=== PATIENT | female | born 1940 | race Caucasian/White ===

== ENCOUNTER 2016-10-16 11:11 | Emergency (ER) | payer MEDICARE ==
[2016-10-16] MEDS ORDERED: CLINDAMYCIN 150 MG CAP PO STA (12:40)
--- NOTE | 2016-10-16 13:32 | ED ---
General Adult HPI - General Chief complaint: Wound/Laceration Stated complaint: infection on arm/burning on tongue Time Seen by Provider: 10/16/16 12:06 Source: patient Mode of arrival: ambulatory - History of Present Illness Initial comments: Patient is a 76-year-old white female presenting to the emergency department with complains of wound to palmar aspect of right forearm. Patient states she got her arm caught in a door about 4 days ago and subsequently suffered a skin tear. Patient states that she has applied topical antibiotics to the wound along with a "black material" that she received from her neighbor that was supposed to draw the pus out. Patient also complains of a sore tongue and sore throat that she's had for approximately 7 days. Patient denies recent illness, chills, fevers, nausea, vomiting, difficulty swallowing, tremors, shortness of breath, chest pain, abdominal pain, diarrhea, constipation, numbness or tingling. Patient denies earache or fullness. Patient states she is able to eat and drink normally. Patient denies antibiotic use and last 30 days. - Related Data Previous Rx's Medication Instructions Recorded Bacitracin Oint 1 applic TOPICAL BID #1 tube 10/16/16 Clindamycin [Cleocin] 300 mg PO Q6H #56 capsule 10/16/16 Allergies Allergy/AdvReac Type Severity Reaction Status Date / Time Penicillins Allergy Rash/Hives Verified 10/16/16 11:19 sulfamethoxazole Allergy Rash/Hives Verified 10/16/16 11:19 [From Bactrim] trimethoprim [From Bactrim] Allergy Rash/Hives Verified 10/16/16 11:19 Review of Systems ROS Statement: Those systems with pertinent positive or pertinent negative responses have been documented in the HPI. ROS Other: All systems not noted in ROS Statement are negative. Past Medical History Past Medical History: COPD, Hyperlipidemia, Hypertension, Osteoarthritis (OA) History of Any Multi-Drug Resistant Organisms: None Reported Past Surgical History: Back Surgery, Orthopedic Surgery Additional Past Surgical History / Comment(s): shoulder Smoking Status: Former smoker Past Alcohol Use History: Occasional Past Drug Use History: None Reported General Exam Limitations: no limitations General appearance: alert, in no apparent distress Head exam: Present: atraumatic, normocephalic Eye exam: Present: normal appearance. Absent: scleral icterus, conjunctival injection, periorbital swelling, periorbital tenderness ENT exam: Present: normal exam, mucous membranes moist, TM's normal bilaterally , normal external ear exam Expanded Mouth exam: Present: normal external inspection, other (Tongue slightly erythematous. No thrush or lesions noted.). Absent: drooling, trismus, muffled voice Teeth exam: Present: normal inspection Throat exam: other (Posterior pharynx slightly erythematous.). negative: tonsillar erythema, tonsillomegaly, tonsillar exudate, R peritonsillar mass, L peritonsillar mass Neck exam: Present: normal inspection, full ROM. Absent: lymphadenopathy, thyromegaly Respiratory exam: Present: normal lung sounds bilaterally. Absent: respiratory distress, wheezes, rales, rhonchi, stridor Cardiovascular Exam: Present: regular rate, normal rhythm, normal heart sounds. Absent: systolic murmur, diastolic murmur, rubs, gallop, clicks GI/Abdominal exam: Present: soft, normal bowel sounds. Absent: distended, tenderness, guarding, rebound, rigid Extremities exam: Present: normal inspection, full ROM, normal capillary refill. Absent: tenderness, pedal edema, joint swelling, calf tenderness Back exam: Present: normal inspection, full ROM Neurological exam: Present: alert, oriented X3, CN II-XII intact, normal gait Psychiatric exam: Present: normal affect, normal mood Skin exam: Present: warm, dry, normal color, other (Skin tear to palmar aspect of right forearm measuring approximately 3 x 2 cm with irregular borders. Minimal purulent drainage noted with minimal cellulitis.). Absent: rash Course Vital Signs 10/16/16 11:15 Temperature 99.0 F Pulse Rate 99 Respiratory 16 Rate Blood Pressure 185/92 O2 Sat by Pulse 98 Oximetry Medical Decision Making - Medical Decision Making Cellulitis with purulent drainage to right forearm secondary to skin tear. Culture obtained. Patient started on clindamycin and provided with wound care instructions. Patient also presented with a sore throat and sore tongue. Strep throat culture obtained. Patient able to swallow and eat without difficulty. No lesions or rash of tongue noted. Patient instructed to follow- up with primary care physician in next 48-72 hours or return to the emergency department if symptoms do not improve or get worse in next 48-72 hours. Patient agrees with treatment plan. Discharge instructions and return parameters reviewed. Disposition Clinical Impression: Cellulitis of forearm, right, Pharyngitis Disposition: HOME SELF-CARE Condition: Good Instructions: Cellulitis (ED), Acute Wound Care (ED) Additional Instructions: Finish antibiotic as prescribed. Clean wound with soap and water twice daily and apply topical antibiotic with nonadherent dressing and dry dressing. Please follow-up with primary care physician on Tuesday for wound check or the emergency department if wound becomes increasingly red or if streaks going up the arm. Patient return with systemic symptoms such as chills, nausea, vomiting , fevers or muscle aches. Follow-up with primary care physician for sore tongue. May use salt water gargles for symptomatic relief. Prescriptions: Bacitracin Oint 1 applic TOPICAL BID #1 tube Clindamycin [Cleocin] 300 mg PO Q6H #56 capsule Time of Disposition: 13:24
[2016-10-16 13:44] VITALS: BP 168/68; PULSE 86; RESP 18; TEMP 98
== END 2016-10-16 13:43 | disposition home or self-care (01) ==
LOC: EC 11:11
DX: L03.113 Cellulitis of right upper limb (principal); S51.811A Laceration without foreign body of right forearm, initial encounter; J02.9 Acute pharyngitis, unspecified; Z87.891 Personal history of nicotine dependence; Z88.0 Allergy status to penicillin; Z88.1 Allergy status to other antibiotic agents; W45.8XXA Other foreign body or object entering through skin, initial encounter; W23.0XXA Caught, crushed, jammed, or pinched between moving objects, initial encounter
CPT/HCPCS: 87070; 87081; 87205; 87430; 99283

== ENCOUNTER 2017-05-10 12:21 | Emergency (ER) | payer MEDICARE ==
[2017-05-10 12:35] VITALS: BP 119/70; PULSE 82; RESP 16; TEMP 98.9
--- NOTE | 2017-05-10 13:08 | ED ---
Lower Extremity Injury HPI - General Chief Complaint: Extremity Injury, Lower Stated Complaint: Fall-Knee Pain Time Seen by Provider: 05/10/17 12:47 Source: patient, RN notes reviewed, old records reviewed Mode of arrival: wheelchair Limitations: no limitations - History of Present Illness Initial Comments: Patient is a 77-year-old female presents emergency Department chief complaint of left knee pain. Patient reports that she was pain He [place] tree yesterday, and fell off of the stool that she was on. Patient states that she has fallen on her left knee. She reports that she was able to bear weight. She denies any foot or ankle pain. Patient states that she has ever had any previous injuries to this knee. She is not seen an rail specialist. Patient states that she put ice on her knee. She states that the pain is worse after she's been sitting for a few hours and ankles to stand up. - Related Data Home Medications Medication Instructions Recorded Confirmed DULoxetine HCL [Cymbalta] 90 mg PO DAILY 10/16/16 10/16/16 amLODIPine BESYLATE/BENAZEPRIL 1 cap PO DAILY 10/16/16 10/16/16 [Lotrel 10-20 mg Capsule] Previous Rx's Medication Instructions Recorded Bacitracin Oint 1 applic TOPICAL BID #1 tube 10/16/16 Clindamycin [Cleocin] 300 mg PO Q6H #56 capsule 10/16/16 Allergies Allergy/AdvReac Type Severity Reaction Status Date / Time Penicillins Allergy Rash/Hives Verified 05/10/17 12:34 sulfamethoxazole Allergy Rash/Hives/ Verified 05/10/17 12:34 [From Bactrim] Blisters trimethoprim [From Bactrim] Allergy Rash/Hives/ Verified 05/10/17 12:34 Blisters Review of Systems ROS Statement: Those systems with pertinent positive or pertinent negative responses have been documented in the HPI. ROS Other: All systems not noted in ROS Statement are negative. Past Medical History Past Medical History: COPD, Hyperlipidemia, Hypertension, Osteoarthritis (OA) Additional Past Medical History / Comment(s): collapsed lung History of Any Multi-Drug Resistant Organisms: None Reported Past Surgical History: Back Surgery, Orthopedic Surgery Additional Past Surgical History / Comment(s): shoulder, lower half of left lung removed Past Psychological History: No Psychological Hx Reported Smoking Status: Former smoker Past Alcohol Use History: Occasional Past Drug Use History: None Reported General Exam - General Exam Comments Initial Comments: This is a 77-year-old female. No acute distress. Limitations: no limitations General appearance: alert, in no apparent distress Head exam: Present: atraumatic, normocephalic, normal inspection Eye exam: Present: normal appearance, PERRL, EOMI. Absent: scleral icterus, conjunctival injection, periorbital swelling ENT exam: Present: normal exam, mucous membranes moist Neck exam: Present: normal inspection. Absent: tenderness, meningismus, lymphadenopathy Respiratory exam: Present: normal lung sounds bilaterally. Absent: respiratory distress, wheezes, rales, rhonchi, stridor Cardiovascular Exam: Present: regular rate, normal rhythm, normal heart sounds. Absent: systolic murmur, diastolic murmur, rubs, gallop, clicks GI/Abdominal exam: Present: soft, normal bowel sounds. Absent: distended, tenderness, guarding, rebound, rigid Extremities exam: Present: normal inspection, full ROM, normal capillary refill. Absent: tenderness, pedal edema, joint swelling, calf tenderness Left Upper Leg exam: Present: normal inspection, full ROM Knee exam: Present: normal inspection, full ROM, tenderness (Tenderness over bilateral meniscus.), swelling (Most swelling.) Lower Leg exam: Present: normal inspection, full ROM Ankle exam: Present: normal inspection, full ROM Foot/Toe exam: Present: normal inspection, full ROM Neurovascular tendon exam: Present: no vascular compromise Back exam: Present: normal inspection Neurological exam: Present: alert, oriented X3, CN II-XII intact Psychiatric exam: Present: normal affect, normal mood Course Vital Signs 05/10/17 12:32 Temperature 98.9 F Pulse Rate 82 Respiratory 16 Rate Blood Pressure 119/70 O2 Sat by Pulse 96 Oximetry Medical Decision Making - Medical Decision Making Chief patient is a 77-year-old female presents emergency Department with left knee pain. Patient has full range of motion. Normal capillary refill and sensation. She does have some tenderness and swelling over the meniscus. No significant laxity in the knee. Patient x-ray was reviewed, noted some any acute abnormalities. There is some disc space calcifications and joint space narrowing due to*arthritis. Patient was informed of these results. Patient only given an Adam wrap to place over the knee. Discussed that she needs to follow-up with orthopedic physician. Discussed taking antibiotics or medicines her pain as well. Discussed icing at 20 minutes on and 20 minutes off. Patient agrees to treatment plan will comply. Return parameters were discussed. - Radiology Data Radiology results: report reviewed X-ray of the left knee shows no acute fracture dislocation. There is mild to moderate tricompartmental joint space loss. Mild spurring patellofemoral compartment. Meniscal calcific Asians are present. Overlying soft tissue appears unremarkable. Disposition Clinical Impression: Contusion of left knee, Injury of meniscus of left knee Disposition: HOME SELF-CARE Condition: Good Instructions: Knee Sprain (ED) Additional Instructions: Patient advised to take Motrin or Tylenol for pain. Patient is to continue to ice the knee. Patient should keep it up and elevated as well. Follow-up with orthopedic physician if symptoms continue to persist. Return to the emergency department if any alarming signs or symptoms occur. Referrals: Guicho Sands MD [Primary Care Provider] - 1-2 days Time of Disposition: 13:18
--- NOTE | 2017-05-10 13:14 | XR ---
EXAMINATION TYPE: XR knee complete LT DATE OF EXAM: 05/10/2017 CLINICAL HISTORY: Left knee pain after fall injury yesterday. TECHNIQUE: Three views of the left knee are obtained. COMPARISON: None. FINDINGS: There is no acute fracture/dislocation evident in left knee. There is mild to moderate tri compartment joint space loss. There is mild spurring patellofemoral compartment. Meniscal calcificat ions are present. The overlying soft tissue appears unremarkable. IMPRESSION: There is no acute fracture or dislocation in the left knee.
--- NOTE | 2017-05-10 13:27 | ED ---
Disposition Clinical Impression: Contusion of left knee, Injury of meniscus of left knee Disposition: HOME SELF-CARE Condition: Good Instructions: Knee Sprain (ED) Additional Instructions: Patient advised to take Motrin or Tylenol for pain. Patient is to continue to ice the knee. Patient should keep it up and elevated as well. Follow-up with orthopedic physician if symptoms continue to persist. Return to the emergency department if any alarming signs or symptoms occur. Referrals: Guicho Sands MD [Primary Care Provider] - 1-2 days Time of Disposition: 13:27
== END 2017-05-10 13:29 | disposition home or self-care (01) ==
LOC: EC 12:21
DX: S83.207A Unspecified tear of unspecified meniscus, current injury, left knee, initial encounter (principal); S80.02XA Contusion of left knee, initial encounter; I10 Essential (primary) hypertension; Z88.0 Allergy status to penicillin; Z79.899 Other long term (current) drug therapy; Z87.891 Personal history of nicotine dependence; W08.XXXA Fall from other furniture, initial encounter
CPT/HCPCS: 99284

== ENCOUNTER 2017-12-12 12:13 | Observation (INO) | payer MEDICARE ==
--- NOTE | 2017-12-12 12:52 | ED ---
General Adult HPI - General Chief complaint: Chest Pain Stated complaint: chest pain Time Seen by Provider: 12/12/17 12:28 Source: patient, RN notes reviewed, old records reviewed Mode of arrival: wheelchair Limitations: no limitations - History of Present Illness Initial comments: 77-year-old female history of COPD, pneumothorax, lung cancer status post resection presenting for chief complaint of central chest pain. Patient has no known history of CAD. States her pain is substernal, worse with deep inspiration. Describes it as a sharp pain which began this morning. She has had a cough over the past several days. She states that over the past one week she has been smoking again she had quit previously. Any radiating pain. Denies abdominal pain. Denies nausea or vomiting. Denies diaphoresis. Denies fever or chills. - Related Data Home Medications Medication Instructions Recorded Confirmed DULoxetine HCL [Cymbalta] 90 mg PO DAILY 10/16/16 12/12/17 amLODIPine BESYLATE/BENAZEPRIL 1 cap PO DAILY 10/16/16 12/12/17 [Lotrel 10-20 mg Capsule] Atorvastatin [Lipitor] 20 mg PO DAILY 12/12/17 12/12/17 Cetirizine HCl/Pseudoephedrine 1 tab PO BID PRN 12/12/17 12/12/17 [Zyrtec-D Tablet] LORazepam [Ativan] 0.5 mg PO DAILY PRN 12/12/17 12/12/17 cycloSPORINE [Restasis] 1 drop BOTH EYES BID 12/12/17 12/12/17 Allergies Allergy/AdvReac Type Severity Reaction Status Date / Time Penicillins Allergy Rash/Hives Verified 12/12/17 14:11 sulfamethoxazole Allergy Rash/Hives/ Verified 12/12/17 14:11 [From Bactrim] Blisters trimethoprim [From Bactrim] Allergy Rash/Hives/ Verified 12/12/17 14:11 Blisters Review of Systems ROS Statement: Those systems with pertinent positive or pertinent negative responses have been documented in the HPI. ROS Other: All systems not noted in ROS Statement are negative. Past Medical History Past Medical History: COPD, Hyperlipidemia, Hypertension, Osteoarthritis (OA) Additional Past Medical History / Comment(s): collapsed lung History of Any Multi-Drug Resistant Organisms: None Reported Past Surgical History: Back Surgery, Orthopedic Surgery Additional Past Surgical History / Comment(s): shoulder, lower half of left lung removed Past Psychological History: No Psychological Hx Reported Smoking Status: Current some day smoker Past Alcohol Use History: Occasional Past Drug Use History: None Reported General Exam Limitations: no limitations General appearance: alert, in no apparent distress Head exam: Present: atraumatic, normocephalic Eye exam: Present: normal appearance, PERRL ENT exam: Present: normal exam Neck exam: Present: normal inspection. Absent: tenderness, meningismus Respiratory exam: Present: wheezes. Absent: respiratory distress Cardiovascular Exam: Present: normal rhythm, tachycardia GI/Abdominal exam: Present: soft. Absent: distended, tenderness, guarding Back exam: Present: normal inspection Neurological exam: Present: alert, oriented X3, CN II-XII intact. Absent: motor sensory deficit Psychiatric exam: Present: normal affect, normal mood Skin exam: Present: warm, dry, intact. Absent: cyanosis, diaphoretic Course Vital Signs 12/12/17 12/12/17 12/12/17 12:24 14:30 14:54 Temperature 98.3 F Pulse Rate 107 H 110 H 112 H Respiratory 24 18 18 Rate Blood Pressure 119/74 137/70 115/89 O2 Sat by Pulse 96 99 98 Oximetry EKG Findings - EKG Comments: EKG Findings:: EKG: Sinus tachycardia, rate of 109, DC interval 116, QRS duration 76, QTC 449, there is no ST segment elevation or depression, upright T waves Medical Decision Making - Medical Decision Making 77-year-old female presenting with substernal chest pain. Pain is worse with deep inspiration. Somewhat atypical. Chest x-ray is negative for focal pneumonia or pneumothorax. D-dimer is elevated and therefore CT angiography is obtained, this is negative for PE. Magnesium 1.3 this is replaced. Initial troponin is negative. Patient's will be admitted for serial cardiac enzymes and cardiology consultation. Case discussed with Dr. Eagle, he will accept admission. - Lab Data Result diagrams: 12/12/17 12:50 12/12/17 12:50 Lab Results 12/12/17 12/12/17 12/12/17 Range/Units 12:50 12:50 12:50 WBC 10.0 (3.8-10.6) k/uL RBC 4.02 (3.80-5.40) m/uL Hgb 14.0 (11.4-16.0) gm/dL Hct 41.9 (34.0-46.0) % MCV 104.3 H (80.0-100.0) fL MCH 34.8 (25.0-35.0) pg MCHC 33.4 (31.0-37.0) g/dL RDW 15.2 (11.5-15.5) % Plt Count 233 (150-450) k/uL Neutrophils % 84 % Lymphocytes % 8 % Monocytes % 5 % Eosinophils % 1 % Basophils % 0 % Neutrophils # 8.4 H (1.3-7.7) k/uL Lymphocytes # 0.8 L (1.0-4.8) k/uL Monocytes # 0.5 (0-1.0) k/uL Eosinophils # 0.1 (0-0.7) k/uL Basophils # 0.0 (0-0.2) k/uL Macrocytosis Slight PT (9.0-12.0) sec INR (<1.2) APTT (22.0-30.0) sec D-Dimer (<0.60) mg/L FEU Sodium 138 (137-145) mmol/L Potassium 4.7 (3.5-5.1) mmol/L Chloride 102 (98-107) mmol/L Carbon Dioxide 21 L (22-30) mmol/L Anion Gap 15 mmol/L BUN 16 (7-17) mg/dL Creatinine 0.74 (0.52-1.04) mg/dL Est GFR (CKD-EPI)AfAm >90 (>60 ml/min/1.73 sqM) Est GFR (CKD-EPI)NonAf 80 (>60 ml/min/1.73 sqM) Glucose 99 (74-99) mg/dL Calcium 10.1 (8.4-10.2) mg/dL Magnesium 1.3 L (1.6-2.3) mg/dL Total Bilirubin 1.0 (0.2-1.3) mg/dL AST 64 H (14-36) U/L ALT 52 (9-52) U/L Alkaline Phosphatase 122 (38-126) U/L Total Creatine Kinase 91 (30-135) U/L CK-MB (CK-2) 1.3 (0.0-2.4) ng/mL CK-MB (CK-2) Rel Index 1.4 Troponin I <0.012 (0.000-0.034) ng/mL NT-Pro-B Natriuret Pep pg/mL Total Protein 7.3 (6.3-8.2) g/dL Albumin 4.5 (3.5-5.0) g/dL 12/12/17 12/12/17 Range/Units 12:50 12:50 WBC (3.8-10.6) k/uL RBC (3.80-5.40) m/uL Hgb (11.4-16.0) gm/dL Hct (34.0-46.0) % MCV (80.0-100.0) fL MCH (25.0-35.0) pg MCHC (31.0-37.0) g/dL RDW (11.5-15.5) % Plt Count (150-450) k/uL Neutrophils % % Lymphocytes % % Monocytes % % Eosinophils % % Basophils % % Neutrophils # (1.3-7.7) k/uL Lymphocytes # (1.0-4.8) k/uL Monocytes # (0-1.0) k/uL Eosinophils # (0-0.7) k/uL Basophils # (0-0.2) k/uL Macrocytosis PT 9.6 (9.0-12.0) sec INR 1.0 (<1.2) APTT 23.5 (22.0-30.0) sec D-Dimer 1.30 H (<0.60) mg/L FEU Sodium (137-145) mmol/L Potassium (3.5-5.1) mmol/L Chloride (98-107) mmol/L Carbon Dioxide (22-30) mmol/L Anion Gap mmol/L BUN (7-17) mg/dL Creatinine (0.52-1.04) mg/dL Est GFR (CKD-EPI)AfAm (>60 ml/min/1.73 sqM) Est GFR (CKD-EPI)NonAf (>60 ml/min/1.73 sqM) Glucose (74-99) mg/dL Calcium (8.4-10.2) mg/dL Magnesium (1.6-2.3) mg/dL Total Bilirubin (0.2-1.3) mg/dL AST (14-36) U/L ALT (9-52) U/L Alkaline Phosphatase (38-126) U/L Total Creatine Kinase (30-135) U/L CK-MB (CK-2) (0.0-2.4) ng/mL CK-MB (CK-2) Rel Index Troponin I (0.000-0.034) ng/mL NT-Pro-B Natriuret Pep 96 pg/mL Total Protein (6.3-8.2) g/dL Albumin (3.5-5.0) g/dL Disposition Clinical Impression: Chest pain Disposition: ADMITTED IP TO THIS [facility] Condition: Stable Is patient prescribed a controlled substance at d/c from ED?: No Referrals: Guicho Sands MD [Primary Care Provider] - 1-2 days Decision to Admit Reason: Admit from EC Decision Date: 12/12/17 Decision Time: 15:31
--- NOTE | 2017-12-12 13:27 | XR ---
EXAMINATION TYPE: XR chest 2V DATE OF EXAM: 12/12/2017 COMPARISON: NONE HISTORY: Chest pain as morning. TECHNIQUE: Frontal and lateral views of the chest are obtained. FINDINGS: There is some chronic parenchymal change without suspicious focal air space opacity, pleur al effusion, or pneumothorax seen. The cardiac silhouette size is upper limits of normal with athero sclerotic thoracic aorta. There is partial visualization of surgical change in the lumbar spine. Ther e is fairly moderate multilevel spurring and disc space narrowing in the mid to lower thoracic spine. IMPRESSION: Chronic changes without acute pulmonary process.
[2017-12-12 13:29] LABS: ALT 52 U/L (9-52); AST 64 U/L (14-36); Albumin 4.5 g/dL (3.5-5.0); Alkaline Phosphatase 122 U/L (38-126); Anion Gap 15 mmol/L; Basophils % (A) 0 %; Blood Urea Nitrogen 16 mg/dL (7-17); Calcium 10.1 mg/dL (8.4-10.2); Carbon Dioxide 21 mmol/L (22-30); Chloride 102 mmol/L (98-107); Eosinophils # (A) 0.1 k/uL (0-0.7); Eosinophils % (A) 1 %; Glucose 99 mg/dL (74-99); HCT 41.9 % (34.0-46.0); Lymphocytes # (A) 0.8 k/uL (1.0-4.8); Lymphocytes % (A) 8 %; MCH 34.8 pg (25.0-35.0); MCHC 33.4 g/dL (31.0-37.0); MCV 104.3 fL (80.0-100.0); Macrocytosis Slight; Magnesium 1.3 mg/dL (1.6-2.3); Mean Platelet Volume 6.8; Monocytes # (A) 0.5 k/uL (0-1.0); Monocytes % (A) 5 %; Neutrophils # (A) 8.4 k/uL (1.3-7.7); Neutrophils % (A) 84 %; Platelet Count 233 k/uL (150-450); Potassium 4.7 mmol/L (3.5-5.1); RBC 4.02 m/uL (3.80-5.40); RDW 15.2 % (11.5-15.5); Sodium 138 mmol/L (137-145); Total Protein 7.3 g/dL (6.3-8.2)
[2017-12-12 13:40] LABS: Partial Thromboplastin Time 23.5 sec (22.0-30.0); Prothrombin Time 9.6 sec (9.0-12.0)
[2017-12-12 13:43] LABS: Creatine Kinase 91 U/L (30-135)
[2017-12-12 13:54] LABS: Creatine Kinase MB 1.3 ng/mL (0.0-2.4); Troponin I <0.012 ng/mL (0.000-0.034)
[2017-12-12 14:02] LABS: D-Dimer 1.3 mg/L FEU (<0.60)
--- NOTE | 2017-12-12 14:50 | CT ---
EXAMINATION TYPE: CT angio chest DATE OF EXAM: 12/12/2017 COMPARISON: Same day chest x-ray HISTORY: Shortness of breath CT DLP: 139.3 mGycm. Automated Exposure Control for Dose Reduction was Utilized. CONTRAST: CTA scan of the thorax is performed with IV Contrast, patient injected with 70 mL of Isovue 370, pulm onary embolism protocol. MIP Images are created on CT scanner and reviewed. FINDINGS: LUNGS: Elevated left hemidiaphragm is present. There is posterior and lateral left basilar linear sca rring and/or atelectasis. There is background mild to moderate underlying emphysematous change with m ild biapical pleural/parenchymal scarring. There is no suspicious focal consolidation or groundglass opacity. No pleural effusion or pneumothorax is present bilaterally MEDIASTINUM: There is satisfactory enhancement of the pulmonary artery and its branches, there is no CT evidence for pulmonary embolism. There are no greater than 1 cm hilar or mediastinal lymph nodes. No significant pericardial effusion is seen. Heart size is upper limits of normal. There is mild t o moderate plaque in the visualized aorta. OTHER: There is partial visualization of surgical change in the lumbar spine. IMPRESSION: 1. No CT evidence for acute pulmonary embolism. 2. Chronic changes without acute pulmonary process.
[2017-12-12] MEDS ORDERED: SODIUM CHLORIDE 0.9% 1,000 ML IV ONE (14:57)
--- NOTE | 2017-12-12 15:03 | P.HPIM ---
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 Patient denies any change in urine or bowel habits, no fever, no dizziness, no headache or weakness Patient states she is quit smoking a while ago and she is on Chantix however the last week she was started again about 3-4 cigarettes per day Chest x-ray shows chronic changes without acute pulmonary process Review of Systems CONSTITUTIONAL: No fever, no malaise, no fatigue. HEENT: No recent visual problems or hearing problems. Denied any sore throat. CARDIOVASCULAR: No orthopnea, PND, no palpitations, no syncope. PULMONARY: No shortness of breath, no cough, no hemoptysis. GASTROINTESTINAL: No diarrhea, no nausea, no vomiting, no abdominal pain. Normoactive bowel sounds. NEUROLOGICAL: No headaches, no weakness, no numbness. HEMATOLOGICAL: Denies any bleeding or petechiae. GENITOURINARY: Denies any burning micturition, frequency, or urgency. MUSCULOSKELETAL/RHEUMATOLOGICAL: Denies any joint pain, swelling, or any muscle pain. ENDOCRINE: Denies any polyuria or polydipsia. Past Medical History Past Medical History: COPD, Hyperlipidemia, Hypertension, Osteoarthritis (OA) Additional Past Medical History / Comment(s): collapsed lung History of Any Multi-Drug Resistant Organisms: None Reported Past Surgical History: Back Surgery, Orthopedic Surgery Additional Past Surgical History / Comment(s): shoulder, lower half of left lung removed Past Psychological History: No Psychological Hx Reported Smoking Status: Current some day smoker Past Alcohol Use History: Occasional Past Drug Use History: None Reported Medications and Allergies Home Medications Medication Instructions Recorded Confirmed Type DULoxetine HCL [Cymbalta] 90 mg PO DAILY 10/16/16 12/12/17 History amLODIPine BESYLATE/BENAZEPRIL 1 cap PO DAILY 10/16/16 12/12/17 History [Lotrel 10-20 mg Capsule] Atorvastatin [Lipitor] 20 mg PO DAILY 12/12/17 12/12/17 History Cetirizine HCl/Pseudoephedrine 1 tab PO BID PRN 12/12/17 12/12/17 History [Zyrtec-D Tablet] LORazepam [Ativan] 0.5 mg PO DAILY PRN 12/12/17 12/12/17 History cycloSPORINE [Restasis] 1 drop BOTH EYES BID 12/12/17 12/12/17 History Allergies Allergy/AdvReac Type Severity Reaction Status Date / Time Penicillins Allergy Rash/Hives Verified 12/12/17 14:11 sulfamethoxazole Allergy Rash/Hives/ Verified 12/12/17 14:11 [From Bactrim] Blisters trimethoprim [From Bactrim] Allergy Rash/Hives/ Verified 12/12/17 14:11 Blisters Physical Exam Vitals: Vital Signs Temp Pulse Resp BP Pulse Ox 12/12/17 12:24 98.3 F 107 H 24 119/74 96 Intake and Output 12/11/17 12/12/17 12/12/17 22:59 06:59 14:59 Other: Weight 52.163 kg GENERAL: The patient is alert and oriented x3, not in any acute distress. Well developed, well nourished. HEENT: Pupils are round and equally reacting to light. EOMI. No scleral icterus. No conjunctival pallor. Normocephalic, atraumatic. No pharyngeal erythema. No thyromegaly. CARDIOVASCULAR: S1 and S2 present. No murmurs, rubs, or gallops. PULMONARY: Chest is clear to auscultation, no wheezing or crackles. ABDOMEN: Soft, nontender, nondistended, normoactive bowel sounds. No palpable organomegaly. MUSCULOSKELETAL: No joint swelling or deformity. EXTREMITIES: No cyanosis, clubbing, or pedal edema. NEUROLOGICAL: Gross neurological examination did not reveal any focal deficits. SKIN: No rashes. Results CBC & Chem 7: 12/12/17 12:50 12/12/17 12:50 Labs: Abnormal Lab Results - Last 24 Hours (Table) 12/12/17 12/12/17 12/12/17 Range/Units 12:50 12:50 12:50 MCV 104.3 H (80.0-100.0) fL Neutrophils # 8.4 H (1.3-7.7) k/uL Lymphocytes # 0.8 L (1.0-4.8) k/uL D-Dimer 1.30 H (<0.60) mg/L FEU Carbon Dioxide 21 L (22-30) mmol/L Magnesium 1.3 L (1.6-2.3) mg/dL AST 64 H (14-36) U/L Assessment and Plan Plan: -Chest pain syndrome, continue with serial troponins and we'll order echo and cardiology consult. Patient undergoing CTPA by ED team -History of COPD, continue with the current treatment -Hypertension continue with same treatment -Current smoker, patient is counseled for risks including but not limited to cancer and strokes of the heart and the brain and/or are explained to the patient and she verbalized understanding, she doesn't want nicotine patch and she doesn't want to quit currently -Dehydration, continue with IV fluids DVT prophylaxis heparin GI prophylaxis Pepcid
[2017-12-12] MEDS ORDERED: SODIUM CHLORIDE 0.9% 500 ML IV ONE (15:21)
[2017-12-12] MEDS ORDERED: MAGNESIUM SULFATE-D5W PMX 1 GM in DEXTROSE/WATER 1 100ML.BAG IVPB ONE (15:23)
[2017-12-12] MEDS ORDERED: NALOXONE 0.4 MG/ML 1 ML VIAL IV PRN (15:28)
[2017-12-12] MEDS ORDERED: ASPIRIN 325 MG TAB PO STA (15:28)
[2017-12-12] MEDS ORDERED: ACETAMINOPHEN TAB 325 MG TAB PO PRN (15:28)
[2017-12-12] MEDS ORDERED: IBUPROFEN 400 MG TAB PO PRN (15:28)
[2017-12-12] MEDS ORDERED: Magnesium Replacement Protocol 1 EACH MISC MISCELLANE PRN (18:25)
[2017-12-12 19:28] LABS: Creatine Kinase 82 U/L (30-135)
[2017-12-12 19:43] LABS: Creatine Kinase MB 1.2 ng/mL (0.0-2.4); Troponin I <0.012 ng/mL (0.000-0.034)
[2017-12-12] MEDS: FAMOTIDINE 20 MG/2 ML VIAL IV SCH (22:51)
[2017-12-12] MEDS: HEPARIN SODIUM,PORCINE 5,000 UNIT/ML 1 ML VIAL SQ SCH (22:51)
[2017-12-12] MEDS: cycloSPORINE 0.05% OPHTH 0.4 ML DROPERETTE BOTH EYES SCH (22:51)
[2017-12-12 23:42] VITALS: RESP 16
[2017-12-13 01:33] LABS: Creatine Kinase 81 U/L (30-135)
[2017-12-13 01:47] LABS: Creatine Kinase MB 1.1 ng/mL (0.0-2.4); Troponin I <0.012 ng/mL (0.000-0.034)
[2017-12-13 07:01] LABS: Basophils % (A) 1 %; Eosinophils # (A) 0.1 k/uL (0-0.7); Eosinophils % (A) 3 %; HCT 38.2 % (34.0-46.0); HGB 12.5 gm/dL (11.4-16.0); Lymphocytes # (A) 0.7 k/uL (1.0-4.8); Lymphocytes % (A) 19 %; MCH 33.4 pg (25.0-35.0); MCHC 32.6 g/dL (31.0-37.0); MCV 102.6 fL (80.0-100.0); Macrocytosis Slight; Mean Platelet Volume 7.2; Monocytes # (A) 0.4 k/uL (0-1.0); Monocytes % (A) 11 %; Neutrophils # (A) 2.3 k/uL (1.3-7.7); Neutrophils % (A) 64 %; Platelet Count 195 k/uL (150-450); RBC 3.72 m/uL (3.80-5.40); RDW 13.4 % (11.5-15.5); WBC 3.6 k/uL (3.8-10.6)
[2017-12-13 07:10] LABS: Calcium 9.5 mg/dL (8.4-10.2); Magnesium 1.8 mg/dL (1.6-2.3); Potassium 4.5 mmol/L (3.5-5.1)
--- NOTE | 2017-12-13 09:46 | P.CRDCN ---
History of Present Illness History of present illness: Mrs. Waters is a pleasant 77-year-old female past medical history significant for hypertension, dyslipidemia, COPD, lung cancer status post left lung resection March 2017 and current smoker. She states yesterday she woke up and she had pain in her chest described as a sharp in the midsternal region that radiated to the upper back in between her shoulder blades. No radiation to the arm, neck or jaw. She denies associated shortness of breath, dizziness, nausea, vomiting, diaphoresis or palpitations. She has been coughing recently with no sputum production. She states the pain in her chest is made worse by taking a deep breath or coughing. No specific alleviating factors. She recently underwent a stress test 2 weeks ago. EKG reveals sinus tachycardia with no acute ST or T-wave abnormalities. Rate 119. Chest xray negative for an acute cardiopulmonary process. CT angios of the chest is negative for pulmonary embolism with mild to moderate plaque in the aorta. Laboratory data reviewed, hemoglobin 12.5, platelets 195, d-dimer 1.3, sodium 139, potassium 4.5, magnesium 1.8, creatinine 0.76, cardiac enzymes negative 3 , proBNP 96. Magnesium on admission was low, 1.3 and has been replaced. Current cardiac medications include atorvastatin 20 mg daily and amlodipine/ benazepril 10/20 mg daily. She also takes Restasis, Ativan, Zyrtec and Cymbalta. Review of Systems At the time of my exam: CONSTITUTIONAL: Denies fever. Denies chills. EYES: Denies blurred vision. Denies vision changes. Denies eye pain. EARS, NOSE, MOUTH & THROAT: Denies headache. Denies sore throat. Denies ear pain. CARDIOVASCULAR: Denies chest pain. Denies shortness of breath. Denies orthopnea. Denies PND. Denies palpitations. RESPIRATORY: Denies cough. GASTROINTESTINAL: Denies abdominal pain. Denies diarrhea. Denies constipation. Denies nausea. Denies vomiting. MUSCULOSKELETAL: Denies myalgias. INTEGUMENTARY: Denies pruitis. Denies rash. NEUROLOGIC: Denies numbness. Denies tingling. Denies weakness. PSYCHIATRIC: Denies anxiety. Denies depression. ENDOCRINE: Denies fatigue. Denies weight change. Denies polydipsia. Denies polyurina. GENITOURINARY: Denies burning, hematuria or urgency with micturation. HEMATOLOGIC: Denies history of anemia. Denies bleeding. Past Medical History Past Medical History: COPD, Hyperlipidemia, Hypertension, Osteoarthritis (OA) Additional Past Medical History / Comment(s): lung bx and post collapsed lung required a c/t, migraines in past, osteoporosis, sinus problems, benign colon polyps. lung cancer 2017(sx only), "occ my heart beats fast" History of Any Multi-Drug Resistant Organisms: None Reported Past Surgical History: Back Surgery, Orthopedic Surgery, Tubal Ligation Additional Past Surgical History / Comment(s): lt shoulder-rotator cuff, lung bx and lower half of left lung removed d/t cancer,philip cataracts, philip bunionectomies and philip 2nd toes straightend, colonoscopy-benign polyps removed, Past Anesthesia/Blood Transfusion Reactions: No Reported Reaction Smoking Status: Former smoker - Past Family History Mother Family Medical History: Congestive Heart Failure (CHF) Additional Family Medical History / Comment(s): brain anerysm Father Family Medical History: Cancer Additional Family Medical History / Comment(s): lymphoma-non hodgkins Medications and Allergies Home Medications Medication Instructions Recorded Confirmed Type DULoxetine HCL [Cymbalta] 90 mg PO DAILY 10/16/16 12/12/17 History amLODIPine BESYLATE/BENAZEPRIL 1 cap PO DAILY 10/16/16 12/12/17 History [Lotrel 10-20 mg Capsule] Atorvastatin [Lipitor] 20 mg PO DAILY 12/12/17 12/12/17 History Cetirizine HCl/Pseudoephedrine 1 tab PO BID PRN 12/12/17 12/12/17 History [Zyrtec-D Tablet] LORazepam [Ativan] 0.5 mg PO DAILY PRN 12/12/17 12/12/17 History cycloSPORINE [Restasis] 1 drop BOTH EYES BID 12/12/17 12/12/17 History Allergies Allergy/AdvReac Type Severity Reaction Status Date / Time Penicillins Allergy Rash/Hives Verified 12/12/17 14:11 sulfamethoxazole Allergy Rash/Hives/ Verified 12/12/17 14:11 [From Bactrim] Blisters trimethoprim [From Bactrim] Allergy Rash/Hives/ Verified 12/12/17 14:11 Blisters Physical Exam Vitals: Vital Signs Temp Pulse Pulse Resp BP BP Pulse Ox 12/13/17 07:35 97.8 F 89 16 97/62 99 12/13/17 04:00 98.0 F 83 16 107/63 98 12/13/17 03:05 16 12/13/17 00:00 16 12/12/17 23:41 98.8 F 99 16 139/76 99 12/12/17 20:00 18 12/12/17 19:58 98.1 F 94 18 109/65 95 12/12/17 17:50 109 H 12/12/17 16:40 99.1 F 109 H 18 127/67 99 12/12/17 15:49 98.3 F 112 H 18 155/83 97 12/12/17 14:54 112 H 18 115/89 98 12/12/17 14:30 110 H 18 137/70 99 12/12/17 12:24 98.3 F 107 H 24 119/74 96 Intake and Output 12/12/17 12/13/17 12/13/17 22:59 06:59 14:59 Intake Total 660 Balance 660 Intake: Oral 660 Other: Voiding Method Toilet Toilet # Voids 1 Weight 53.4 kg Blood pressure 97/62 heart rate 89 afebrile maintaining oxygen saturation on nasal cannula GENERAL: This is a 77-year-old female in no apparent distress at the time of my examination. HEENT: Head is atraumatic, normocephalic. Pupils are equal, round. Sclerae anicteric. Conjunctivae are clear. Mucous membranes of the mouth are moist. Neck is supple. There is no jugular venous distention. No carotid bruit is heard. LUNGS: Faint expiratory wheeze. No rales or rhonchi. No chest wall tenderness is noted on palpation or with deep breathing. HEART: Regular rate and rhythm without murmurs, rubs or gallops. S1 and S2 heard. ABDOMEN: Soft, nontender. Bowel sounds are heard. No organomegaly noted. EXTREMITIES: No evidence of peripheral edema and no calf tenderness noted. VASCULAR: Radial and dorsalis pedis pulses palpated, no evidence of clubbing. NEUROLOGIC: Patient is awake, alert and oriented x3. Results 12/13/17 06:14 12/13/17 06:14 Cardiac Enzymes 12/12/17 12/12/1712/12/18 Range/Units 12:50 12:50 18:32 AST 64 H (14-36) U/L CK-MB (CK-2) 1.3 1.2 (0.0-2.4) ng/mL Troponin I <0.012 <0.012 (0.000-0.034) ng/mL 12/13/17 Range/Units 00:34 AST (14-36) U/L CK-MB (CK-2) 1.1 (0.0-2.4) ng/mL Troponin I <0.012 (0.000-0.034) ng/mL Coagulation 12/12/17 Range/Units 12:50 PT 9.6 (9.0-12.0) sec APTT 23.5 (22.0-30.0) sec CBC 12/12/17 12/13/17 Range/Units 12:50 06:14 WBC 10.0 3.6 L (3.8-10.6) k/uL RBC 4.02 3.72 L (3.80-5.40) m/uL Hgb 14.0 12.5 (11.4-16.0) gm/dL Hct 41.9 38.2 (34.0-46.0) % Plt Count 233 195 (150-450) k/uL Comprehensive Metabolic Panel 12/12/17 12/13/17 Range/Units 12:50 06:14 Sodium 138 139 (137-145) mmol/L Potassium 4.7 4.5 (3.5-5.1) mmol/L Chloride 102 105 (98-107) mmol/L Carbon Dioxide 21 L 24 (22-30) mmol/L BUN 16 15 (7-17) mg/dL Creatinine 0.74 0.76 (0.52-1.04) mg/dL Glucose 99 87 (74-99) mg/dL Calcium 10.1 9.5 (8.4-10.2) mg/dL AST 64 H (14-36) U/L ALT 52 (9-52) U/L Alkaline Phosphatase 122 (38-126) U/L Total Protein 7.3 (6.3-8.2) g/dL Albumin 4.5 (3.5-5.0) g/dL Current Medications Generic Name Dose Route Start Last Admin Trade Name Freq PRN Reason Stop Dose Admin Acetaminophen 650 mg 12/12/17 15:28 Tylenol Tab PO Q6HR PRN Mild Pain or Fever > 100.5 Cyclosporine 1 drops 12/12/17 21:00 12/12/17 22:51 Restasis 0.05% Ophth Soln BOTH EYES 1 drops BID AY Administration Famotidine 20 mg 12/12/17 21:00 12/12/17 22:51 Pepcid IV 20 mg Q12HR YA Administration Heparin Sodium (Porcine) 5,000 unit 12/12/17 21:00 12/12/17 22:51 Heparin SQ 5,000 unit Q12HR YA Administration Ibuprofen 400 mg 12/12/17 15:28 12/12/17 22:53 Motrin PO 400 mg Q6HR PRN Administration Mild Pain or Fever > 100.5 Miscellaneous Information 1 each 12/12/17 18:25 Magnesium Per Protocol MISCELLANE DAILY PRN Per Protocol Protocol Naloxone HCl 0.2 mg 12/12/17 15:28 Narcan IV Q2M PRN Opioid Reversal Intake and Output 12/12/17 12/13/17 12/13/17 22:59 06:59 14:59 Intake Total 660 Balance 660 Intake: Oral 660 Other: Voiding Method Toilet Toilet # Voids 1 Weight 53.4 kg 12/13/17 06:14 12/13/17 06:14 Assessment and Plan Assessment: ASSESSMENT 1. Pleuritic chest pain. An acute coronary event has from rule out no EKG evidence of ischemia and normal cardiac enzymes. 2. Dyslipidemia 3. Hypertension 4. COPD 5. History of lung cancer status post left lung resection, March 2017 6. Chronic tobacco abuse PLAN Obtain 2-D echocardiogram and Doppler study to assess cardiac structure and function. Obtain records of recent stress test performed at [facility] in [place]. If recent stress test is normal she is stable from a cardiac perspective. Follow-up with her primary cost controller upon discharge. Nurse Practitioner note has been reviewed, I agree with a documented findings and plan of care. Patient was seen and examined.
--- NOTE | 2017-12-13 11:08 | P.PN ---
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 Patient denies any change in urine or bowel habits, no fever, no dizziness, no headache or weakness Patient states she is quit smoking a while ago and she is on Chantix however the last week she was started again about 3-4 cigarettes per day Chest x-ray shows chronic changes without acute pulmonary process 12/13/2017 Patient is resting in bed with no complaints, her chest pain came down to 0/10, it is completely resolved. No other new complaints. Pcts evaluated the patient and they recommended echo and the get the results of stress test. We checked her blood pressure on the right side 134/76 heart rate 96 and on the left side 138/72 and heart rate 94 Objective - Vital Signs Vital signs: Vital Signs Temp 97.8 F 12/13/17 07:35 Pulse 89 12/13/17 07:35 Resp 16 12/13/17 07:35 BP 97/62 12/13/17 07:35 Pulse Ox 99 12/13/17 07:35 Intake & Output 12/12/17 12/13/17 12/13/17 18:59 06:59 18:59 Intake Total 660 Balance 660 Weight 53.4 kg Intake: Oral 660 Other: Voiding Method Toilet Toilet # Voids 1 - Exam GENERAL: The patient is alert and oriented x3, not in any acute distress. Well developed, well nourished. HEENT: Pupils are round and equally reacting to light. EOMI. No scleral icterus. No conjunctival pallor. Normocephalic, atraumatic. No pharyngeal erythema. No thyromegaly. CARDIOVASCULAR: S1 and S2 present. No murmurs, rubs, or gallops. PULMONARY: Chest is clear to auscultation, no wheezing or crackles. ABDOMEN: Soft, nontender, nondistended, normoactive bowel sounds. No palpable organomegaly. MUSCULOSKELETAL: No joint swelling or deformity. EXTREMITIES: No cyanosis, clubbing, or pedal edema. NEUROLOGICAL: Gross neurological examination did not reveal any focal deficits. SKIN: No rashes. - Labs CBC & Chem 7: 12/13/17 06:14 12/13/17 06:14 Labs: Abnormal Lab Results - Last 24 Hours (Table) 12/12/17 12/12/17 12/12/17 Range/Units 12:50 12:50 12:50 WBC (3.8-10.6) k/uL RBC (3.80-5.40) m/uL MCV 104.3 H (80.0-100.0) fL Neutrophils # 8.4 H (1.3-7.7) k/uL Lymphocytes # 0.8 L (1.0-4.8) k/uL D-Dimer 1.30 H (<0.60) mg/L FEU Carbon Dioxide 21 L (22-30) mmol/L Magnesium 1.3 L (1.6-2.3) mg/dL AST 64 H (14-36) U/L 12/13/17 Range/Units 06:14 WBC 3.6 L (3.8-10.6) k/uL RBC 3.72 L (3.80-5.40) m/uL MCV 102.6 H (80.0-100.0) fL Neutrophils # (1.3-7.7) k/uL Lymphocytes # 0.7 L (1.0-4.8) k/uL D-Dimer (<0.60) mg/L FEU Carbon Dioxide (22-30) mmol/L Magnesium (1.6-2.3) mg/dL AST (14-36) U/L Assessment and Plan Plan: -Chest pain syndrome,cardiology consult: Recommended echo and results of recent stress test which are pending. Patient undergoing CTPA by ED team: Negative for PE -History of COPD, continue with the current treatment -Hypertension continue with same treatment -Current smoker, patient is counseled for risks including but not limited to cancer and strokes of the heart and the brain and/or are explained to the patient and she verbalized understanding, she doesn't want nicotine patch and she doesn't want to quit currently -Dehydration, resolving. continue with oral hydration DVT prophylaxis heparin GI prophylaxis Pepcid
[2017-12-13 11:18] VITALS: BP 138/72; PULSE 84; TEMP 98.5
[2017-12-13] MEDS ORDERED: LORazepam 0.5 MG TAB PO PRN (11:36)
[2017-12-13] MEDS ORDERED: LORATADINE-PSEUDOEPH 5-120 MG 1 EACH TAB.ER.12H PO PRN (11:36)
[2017-12-13] MEDS ORDERED: hydrALAZINE HCL 25 MG TAB PO PRN (11:37)
[2017-12-13] MEDS ORDERED: DULoxetine HCL 30 MG CAPSULE.DR PO SCH (11:45)
[2017-12-13] MEDS: cycloSPORINE 0.05% OPHTH 0.4 ML DROPERETTE BOTH EYES SCH (12:45)
[2017-12-13] MEDS: HEPARIN SODIUM,PORCINE 5,000 UNIT/ML 1 ML VIAL SQ SCH (12:48)
[2017-12-13] MEDS: FAMOTIDINE 20 MG/2 ML VIAL IV SCH ×2 (12:48→17:10)
--- NOTE | 2017-12-13 13:16 | ECHOF ---
Referral Reason:cp MEASUREMENTS -------- HEIGHT: 154.9 cm WEIGHT: 52.2 kg BP: 115/89 RVIDd: 3.0 cm (< 3.3) IVSd: 1.2 cm (0.6 - 1.1) LVIDd: 4.7 cm (3.9 - 5.3) LVPWd: 1.3 cm (0.6 - 1.1) IVSs: 1.5 cm LVIDs: 2.8 cm LVPWs: 1.3 cm LAESV Index (A-L): 25.23 ml/m Ao Diam: 3.0 cm (2.0 - 3.7) AV Cusp: 1.6 cm (1.5 - 2.6) LA Diam: 2.8 cm (2.7 - 3.8) EPSS: 0.9 cm MV E Cristofer: 0.70 m/s MV DecT: 190 ms MV A Cristofer: 1.19 m/s MV E/A Ratio: 0.59 RAP: 5.00 mmHg RVSP: 29.64 mmHg MV EF SLOPE: 129.22 mm/s (70 - 150) MV EXCURSION: 1.50 cm (> 18.000) FINDINGS -------- Sinus rhythm. This was a technically adequate study. The left ventricular size is normal. There is mild concentric left ventricular hypertrophy. Overa ll left ventricular systolic function is normal with, an EF between 55 - 60 %. The right ventricle is mildly enlarged. Normal LA size by volume 22+/-6 ml/m2. RA appears enlarged. Aortic valve is trileaflet and is mildly thickened. There is no evidence of aortic regurgitation. There is no evidence of aortic stenosis. The mitral valve leaflets are mildly thickened. There is trace mitral regurgitation. Trace tricuspid regurgitation present. Right ventricular systolic pressure is normal at < 35 mmHg. There is no evidence of pulmonary hypertension. The pulmonic valve was not well visualized. The aortic root size is normal. Normal inferior vena cava with normal inspiratory collapse consistent with estimated right atrial pre ssure of 5 mmHg. There is no pericardial effusion. Small Pleural Effusion. CONCLUSIONS -------- 1. Sinus rhythm. 2. This was a technically adequate study. 3. The left ventricular size is normal. 4. There is mild concentric left ventricular hypertrophy. 5. Overall left ventricular systolic function is normal with, an EF between 55 - 60 %. 6. The right ventricle is mildly enlarged. 7. Normal LA size by volume 22+/-6 ml/m2. 8. RA appears enlarged. 9. Aortic valve is trileaflet and is mildly thickened. 10. The mitral valve leaflets are mildly thickened. 11. There is trace mitral regurgitation. 12. Trace tricuspid regurgitation present. 13. Right ventricular systolic pressure is normal at < 35 mmHg. 14. There is no evidence of pulmonary hypertension. 15. The pulmonic valve was not well visualized. 16. The aortic root size is normal. 17. There is no pericardial effusion. 18. Small Pleural Effusion. INSULATION ENGINEMAN: Sriram Booker RDCS
--- NOTE | 2017-12-13 15:04 | P.DS ---
Providers Date of admission: 12/12/17 15:28 Attending physician: Nelson Eagle MD Consults: 12/12/17 15:29 Consult Physician Routine Consulting Provider: Alexy Paige Consult Reason/Comments: Chest pain Do you want consulting provider notified?: Yes Primary care physician: Guicho Guillen [facility] Course: This is a pleasant 77 years old female with past medical history of COPD, hypertension, hyperlipidemia, osteoarthritis, lower half of left lung removal surgery, current smoker who presents because of chest pain, central, radiating to the between shoulder blades, heaviness in character, 6/10 in severity, no relieving or precipitating factors, patient has chronic dyspnea with no recent worsening, associated with a chronic cough and 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 Patient denies any change in urine or bowel habits, no fever, no dizziness, no headache or weakness Patient states she is quit smoking a while ago and she is on Chantix however the last week she was started again about 3-4 cigarettes per day Chest x-ray shows chronic changes without acute pulmonary process 12/13/2017 Patient is resting in bed with no complaints, her chest pain came down to 0/10, it is completely resolved. No other new complaints. [facility] evaluated the patient and they recommended echo (EF 55-60%, mild LVH) and the get the results of stress test done at [facility] on 10/24/2017 ( normal with no reversible ischemia). We checked her blood pressure on the right side 134/76 heart rate 96 and on the left side 138/72 and heart rate 94, pt was cleared by cardiology for discharge. pt is found stable and can be discharge however she needs f/u as outpt. her WBC dropped from 10 K to 3.6 k , i spoke with Dr. guillen her pcp and updated him with the case and recommendation to f/u with BP and WBC and he kindly took a note of that please review today Progress note for discharge physical exam time spent more than 35 min Patient Condition at Discharge: Stable Plan - Discharge Summary Discharge Rx Participant: Yes New Discharge Prescriptions: New amLODIPine [Norvasc] 5 mg PO DAILY #30 tab Famotidine [Pepcid] 20 mg PO DAILY #60 tab Continue DULoxetine HCL [Cymbalta] 90 mg PO DAILY cycloSPORINE [Restasis] 1 drop BOTH EYES BID LORazepam [Ativan] 0.5 mg PO DAILY PRN PRN Reason: Anxiety Cetirizine HCl/Pseudoephedrine [Zyrtec-D Tablet] 1 tab PO BID PRN PRN Reason: Allergy Symptoms Atorvastatin [Lipitor] 20 mg PO DAILY Discontinued amLODIPine BESYLATE/BENAZEPRIL [Lotrel 10-20 mg Capsule] 1 cap PO DAILY Discharge Medication List DULoxetine HCL [Cymbalta] 90 mg PO DAILY 10/16/16 [History] Atorvastatin [Lipitor] 20 mg PO DAILY 12/12/17 [History] Cetirizine HCl/Pseudoephedrine [Zyrtec-D Tablet] 1 tab PO BID PRN 12/12/17 [ History] LORazepam [Ativan] 0.5 mg PO DAILY PRN 12/12/17 [History] cycloSPORINE [Restasis] 1 drop BOTH EYES BID 12/12/17 [History] Famotidine [Pepcid] 20 mg PO DAILY #60 tab 12/13/17 [Rx] amLODIPine [Norvasc] 5 mg PO DAILY #30 tab 12/13/17 [Rx] Follow up Appointment(s)/Referral(s): Guicho Guillen MD [Primary Care Provider] - 1-2 days (we recommend to check your White cell count (CBC) and blood pressure with your doctor ) Activity/Diet/Wound Care/Special Instructions: cardiac diet activity as tolerated Discharge Disposition: HOME SELF-CARE
[2017-12-14] MEDS ORDERED: FAMOTIDINE 20 MG TAB PO SCH (09:00)
== END 2017-12-13 16:35 | disposition home or self-care (01) ==
LOC: EC 12:13 → 3OBS 15:28
PROVIDERS: ADMIT Internal Medicine; ATTEND Internal Medicine
DX: R07.1 Chest pain on breathing (principal); R07.2 Precordial pain; R07.81 Pleurodynia; R79.89 Other specified abnormal findings of blood chemistry; I25.10 Atherosclerotic heart disease of native coronary artery without angina pectoris; I10 Essential (primary) hypertension; E78.5 Hyperlipidemia, unspecified; F17.210 Nicotine dependence, cigarettes, uncomplicated; E83.42 Hypomagnesemia; E86.0 Dehydration; M19.90 Unspecified osteoarthritis, unspecified site; J44.9 Chronic obstructive pulmonary disease, unspecified; M81.0 Age-related osteoporosis without current pathological fracture; Z90.2 Acquired absence of lung [part of]; Z88.2 Allergy status to sulfonamides; Z88.0 Allergy status to penicillin; Z79.899 Other long term (current) drug therapy; Z86.010 Personal history of colon polyps; Z85.118 Personal history of other malignant neoplasm of bronchus and lung; Z80.7 Family history of other malignant neoplasms of lymphoid, hematopoietic and related tissues
CPT/HCPCS: 99285; 96365 ×2; 96361 ×2; 96372 ×2; 96375; 36415; 93005; 93306; 97161; 85379; 83880; 80053; 80048; 82550 ×2; 82553 ×2; 83735 ×2; 84484 ×2; 85025 ×2; 85610; 85730; 71046; 71275; G0378 ×2; J1644 ×2; J3475; Q9967

== ENCOUNTER 2019-04-29 19:12 | Emergency (ER) | payer MEDICARE ==
[2019-04-29 19:24] VITALS: TEMP 98.2
[2019-04-29] MEDS ORDERED: methylPREDNISolone SOD SUCCI 125 MG/2 ML VIAL IM ONE (19:38)
--- NOTE | 2019-04-29 19:47 | ED ---
General Adult HPI - General Chief complaint: Allergic Reaction Stated complaint: Tongue Swelling Time Seen by Provider: 04/29/19 19:29 Source: patient, RN notes reviewed Mode of arrival: ambulatory Limitations: no limitations - History of Present Illness Initial comments: Patient is a pleasant 79-year-old female presenting to the emergency department for tongue swelling. Onset of symptoms was around 4:30 today. No history of similar symptoms previously. Patient denies any new exposures. Patient denies any swelling of her face or throat. Patient denies any dyspnea. Medication review does reveal that patient is on Lotrel which does contain Benzapril. No rash. Symptoms have been steady since onset. Patient took Benadryl with mild improvement of symptoms. - Related Data Home Medications Medication Instructions Recorded Confirmed DULoxetine HCL [Cymbalta] 90 mg PO DAILY 10/16/16 12/12/17 Atorvastatin [Lipitor] 20 mg PO DAILY 12/12/17 12/12/17 Cetirizine HCl/Pseudoephedrine 1 tab PO BID PRN 12/12/17 12/12/17 [Zyrtec-D Tablet] LORazepam [Ativan] 0.5 mg PO DAILY PRN 12/12/17 12/12/17 cycloSPORINE [Restasis] 1 drop BOTH EYES BID 12/12/17 12/12/17 Previous Rx's Medication Instructions Recorded Famotidine [Pepcid] 20 mg PO DAILY #60 tab 12/13/17 amLODIPine [Norvasc] 5 mg PO DAILY #30 tab 12/13/17 predniSONE 20 mg PO BID #10 tab 04/29/19 Allergies Allergy/AdvReac Type Severity Reaction Status Date / Time Penicillins Allergy Rash/Hives Verified 04/29/19 19:24 sulfamethoxazole Allergy Rash/Hives/ Verified 04/29/19 19:24 [From Bactrim] Blisters trimethoprim [From Bactrim] Allergy Rash/Hives/ Verified 04/29/19 19:24 Blisters Review of Systems ROS Statement: Those systems with pertinent positive or pertinent negative responses have been documented in the HPI. ROS Other: All systems not noted in ROS Statement are negative. Constitutional: Denies: fever Eyes: Denies: eye pain ENT: Reports: as per HPI Respiratory: Denies: cough, dyspnea Cardiovascular: Denies: chest pain Endocrine: Denies: fatigue Gastrointestinal: Denies: abdominal pain, vomiting Genitourinary: Denies: dysuria Musculoskeletal: Denies: back pain Skin: Denies: rash Past Medical History Past Medical History: COPD, Hyperlipidemia, Hypertension, Osteoarthritis (OA) Additional Past Medical History / Comment(s): lung bx and post collapsed lung required a c/t, migraines in past, osteoporosis, sinus problems, benign colon polyps. lung cancer 2017(sx only), "occ my heart beats fast" History of Any Multi-Drug Resistant Organisms: None Reported Past Surgical History: Back Surgery, Orthopedic Surgery, Tubal Ligation Additional Past Surgical History / Comment(s): lt shoulder-rotator cuff, lung bx and lower half of left lung removed d/t cancer,philip cataracts, philip bunionectomies and philip 2nd toes straightend, colonoscopy-benign polyps removed, Past Anesthesia/Blood Transfusion Reactions: No Reported Reaction Past Psychological History: No Psychological Hx Reported Smoking Status: Former smoker - Past Family History Mother Family Medical History: Congestive Heart Failure (CHF) Additional Family Medical History / Comment(s): brain anerysm Father Family Medical History: Cancer Additional Family Medical History / Comment(s): lymphoma-non hodgkins General Exam Limitations: no limitations General appearance: alert, in no apparent distress Head exam: Present: normocephalic Eye exam: Present: normal appearance, PERRL ENT exam: Present: other (Mild angioedema limited to the left side of the tongue. No angioedema of the posterior pharynx or face. No angioedema of the lips.) Neck exam: Present: normal inspection Respiratory exam: Present: normal lung sounds bilaterally. Absent: respiratory distress, wheezes Cardiovascular Exam: Present: regular rate, normal rhythm GI/Abdominal exam: Present: soft. Absent: tenderness Extremities exam: Present: normal inspection. Absent: pedal edema Neurological exam: Present: alert Psychiatric exam: Present: normal affect, normal mood Skin exam: Present: normal color Course Vital Signs 04/29/19 19:22 Temperature 98.2 F Pulse Rate 100 Respiratory 20 Rate Blood Pressure 153/90 O2 Sat by Pulse 97 Oximetry Medical Decision Making - Medical Decision Making She is advised to continue Benadryl and return if symptoms worsen. Patient is advised to hold her Lotrel with Benzapril and it is this could be the cause. Patient will follow-up with her doctor in the next day or 2 for further medication as well as reevaluation. Disposition Clinical Impression: Angioedema Disposition: HOME SELF-CARE Condition: Stable Instructions (If sedation given, give patient instructions): Angioedema (ED) Additional Instructions: Please follow-up with primary care physician and being the week for reevaluation and to go over medications. Please hold Lotrel as this contains Benzapril which has been known to cause angioedema/swelling of the tongue. Return for increased swelling, swelling of the throat or face, difficulty breathing, worsening symptoms or other concerns. Continue efiv-zxy-ohdwraf Benadryl. Your prescription has been sent to [facility]. Prescriptions: predniSONE 20 mg PO BID #10 tab Is patient prescribed a controlled substance at d/c from ED?: No Referrals: Guicho Sands MD [Primary Care Provider] - 1-2 days Time of Disposition: 19:47
[2019-04-29 20:08] VITALS: BP 154/83; PULSE 108; RESP 16
== END 2019-04-29 20:07 | disposition home or self-care (01) ==
LOC: EC 19:12
DX: T78.3XXA Angioneurotic edema, initial encounter (principal); T46.4X5A Adverse effect of angiotensin-converting-enzyme inhibitors, initial encounter; E78.5 Hyperlipidemia, unspecified; I10 Essential (primary) hypertension; Z87.891 Personal history of nicotine dependence; Z88.0 Allergy status to penicillin; Z88.2 Allergy status to sulfonamides; Z79.899 Other long term (current) drug therapy; Z85.118 Personal history of other malignant neoplasm of bronchus and lung; Z90.2 Acquired absence of lung [part of]; Z86.010 Personal history of colon polyps; Z98.890 Other specified postprocedural states
CPT/HCPCS: 99284; 96372; J2930

== ENCOUNTER → 2021-12-10 | Outpatient (CLI) | payer MEDICARE ==
[2021-12-10 10:48] VITALS: BP 161/87; PULSE 108; RESP 18; TEMP 97.6
--- NOTE | 2021-12-10 11:01 | P.PAINPG ---
PQRS Measure Charge Sheet Comment: HISTORY OF PRESENT ILLNESS: 81 yr old female as a referral from Dr. Remy presents today with severe and chronic cervical pain secondary to DDD, neuroforaminal stenoses, disc bulges, spinal stenosis and facet arthropathy for evaluation. Pain is currently at 5/10 in intensity, localized to the L head/ L neck at base of head but escalates as high as 9/10 in intensity with radiation of pain towards the L shoulder with lifting. Pain is alleviated with PT completed 1 mo ago, PT integrated with massage, home based exercise regimen, alternating heat & ice, medications (Motrin OTC), topicals and rest. Past Medical History: COPD, Hyperlipidemia, HTN, OA, Osteoporosis Past Surgical History: Back Surgery, L shoulder RCT Repair, Tubal Ligation, Lung CA (2017) with biopsy, BL Cataract Resection, BL Bunionectomies Social History: Former tobacco user, No ETOH abuse, No illicit drug use. Family History: Mother- CHF/Cerebral Aneurysm. Father- NHL All: See list Meds: See list REVIEW OF ORGAN SYSTEMS: CONSTITUTIONAL: No fevers or chills. No recent weight loss. HEENT: No visual acuity loss, eye pain, difficulties with hearing. No nosebleeds. No difficulty swallowing. RESPIRATORY: Denies any troubles with breathing or dyspnea on exertion. CARDIOVASCULAR: Denies any chest pain, palpitations, or recent heart attacks. GASTROINTESTINAL: Denies fatty food intolerance. Has change in bowel habits and gas bloat. GENITOURINARY: Denies any blood in urine. Has increased urinary frequency. NEUROLOGICAL: + numbness and tingling along the distal extremities. No seizure disorders or headaches. MUSCULOSKELETAL: + back pain SKIN: No skin cancer. No rash. PSYCHIATRIC: Denies current depression or suicidal thoughts. ENDOCRINE: Denies current thyroid disorders. Denies any blood sugar glucose intolerance. HEME/LYMPHATIC: Denies any lumps and bumps around the neck. History of deep venous thrombosis. ALLERGY/IMMUNOLOGY: No immunoglobulin therapy. No immune deficiencies. BREAST: Denies current breast lumps, pain or nipple discharge. Physical Examinations : Constitutional : Cooperative , not in acute distress . HEENT: Neck supple. No Lymphadenopathy. Normal thyroid size . Eyes no ptosis , no icterus, no photophobia . Hearing intact. Normal oropharynx. No Thrush. Respiratory : Chest clear to auscultations bilaterally. No wheezing. No rhonchi. Cardiovascular : Regular rate and rhythm , S1 / S2. No S3 . No S4. Gastrointestinal : Abdomen soft. No tenderness. Bowel sounds x 4. No organomegaly . Genitourinary : Deferred. Neurologic : Cranial nerve II to XII intact. No focal neurological deficits. Psychiatric : alert & oriented x 3. Matching mood & appropriate affect. Judgment & insight intact. Lymphatic No Lymphadenopathy. Musculoskeletal : Cervical Spine Motor strength in the deltoid and biceps: Normal right side. Normal Left side Motor strength biceps and the wrist extensors: Normal right side . Normal left side Motor strength in the triceps muscle: Normal right side. Normal left side Deep tendon reflexes: Normal at the biceps. Normal at Brachioradialis. Normal at triceps Vertebral body tenderness to palpation over C6 Cervical facet loading test: positive bilaterally Spurling test: positive Neck distraction test: positive Antwon sign: positive bilaterally Lumbar spine Motor strength lower extremities ,thigh and legs 5/5 Right side , 5/5 Left side Deep tendon reflexes : Normal Knee Jerk. Normal Ankle Jerk Vertebral body tenderness over Lumbar facet Loading Test: positive Right / positive Left Range of motion of the lumbar spine Flexion 30 degrees, extension 10 degrees Straight Leg Raise test: Left/ Right positive at degree Juno test: positive right / positive left. Severe tenderness over the Sacroiliac joint on the Right / Left sides Gaenslen test: positive bilaterally Seated flexion test: positive bilaterally. Sacral spine : Severe tenderness over the Sacroiliac joint: right side / left side Range of motion: Flexion of the lumbar spine <60 degrees Range of motion: Extension of the lumbar spine <20 degrees Gaenslen's Test positive Jj's Test positive Juno test: positive right side / left side Thigh Thrust Test Sacral Thrust Test Imaging: MRI without contrast of the cervical spine from 12/02/21 reviewed Assessment/ Plan : Cervical spondylosis Recommendation of RAUDEL C6-C7. May need a series of injections, up to 3 within a six-month time period, for optimal pain relief. Risks, benefits of procedure discussed and patient verbalized understanding. Denies aspirin or anti- coagulant use or medical history of diabetes. All questions answered. I have spent greater than 50 minutes on patient care today. Dr Rose was available by phone for the evaluation of this patient. The time was used to review the medical records including relevant urine studies and Prescription history (MAPs), review of the available imaging, evaluation and examination of the patient, coordination of care with the medical staff and if applicable referring physicians, as well as creation of the medical record PQRS Narrative: Smoking Status Former smoker Home Medications: Ambulatory Orders DULoxetine HCL [Cymbalta] 90 mg PO DAILY 10/16/16 Atorvastatin [Lipitor] 20 mg PO DAILY 12/12/17 Cetirizine HCl/Pseudoephedrine [Zyrtec-D Tablet] 1 tab PO BID PRN 12/12/17 LORazepam [Ativan] 0.5 mg PO Q8H PRN 12/12/17 cycloSPORINE [Restasis] 1 drop BOTH EYES BID 12/12/17 Albuterol Sulfate [Ventolin HFA] 2 puff INHALATION RT-Q6H PRN 04/29/19 amLODIPine BESYLATE/BENAZEPRIL [Lotrel 10-20 MG] 1 cap PO DAILY 04/29/19 predniSONE [Deltasone] 20 mg PO BID #10 tab 04/29/19 Controlled Substance Measures - Controlled Substance Measures Is patient prescribed a controlled substance at discharge?: No
== END ==
LOC: PNWHC3 10:12
PROVIDERS: ATTEND Specialist
DX: M50.30 Other cervical disc degeneration, unspecified cervical region (principal); M47.812 Spondylosis without myelopathy or radiculopathy, cervical region; Z87.891 Personal history of nicotine dependence; Z88.0 Allergy status to penicillin; Z88.2 Allergy status to sulfonamides
CPT/HCPCS: 99211

== ENCOUNTER 2022-01-14 11:29 | Day surgery (SDC) | payer MEDICARE ==
[2022-01-13 14:36] VITALS: BMI 22.1
[~2022-01-14 11:29] MED LIST: LACTATED RINGERS 1,000 ML IV SCH; LIDOCAINE 1% (10MG/ML) FOR IV START INTRADERMA PRN
[2022-01-14 11:56] VITALS: RESP 18; TEMP 98
[2022-01-14] MEDS ORDERED: IOPAMIDOL M200 10 ML VIAL ONE (13:11)
[2022-01-14] MEDS ORDERED: DEXAMETHASONE SOD PHOSPHATE 10 MG/ML 1 ML VIAL ONE (13:11)
[2022-01-14] MEDS ORDERED: MIDAZOLAM 2 MG/2 ML VIAL ONE (13:12)
[2022-01-14] MEDS ORDERED: fentaNYL (PF) 50 MCG/ML 2 ML AMP ONE (13:12)
--- NOTE | 2022-01-14 13:26 | P.PCN ---
Date of Procedure: 01/14/22 Procedure(s) Performed: . PROCEDURE 1. Cervical epidural steroid injection under fluoroscopic guidance, C6-7 (fluoroscopy images available in the radiology department ) 2. Cervical epidurogram. PREOPERATIVE DIAGNOSIS: 1- Cervical Degenerative Disc Diseases 2-cervical spondylosis with cervical Facet arthropathy without myelopathy POSTOPERATIVE DIAGNOSIS: : 1- Cervical Degenerative Disc Diseases , 2-cervical spondylosis with cervical Facet arthropathy without myelopathy ANESTHESIA: Monitored anesthesia care as per anesthesia department. EBL 0 PROCEDURE INDICATION: The patient with neck pain and radiculitis unresponsive to conservative treatment consents for procedure. PROCEDURE DESCRIPTION / TECHNIQUE: The patient was seen and identified in the preoperative area. Risks, benefits, complications, including but not limited to infections ,bleeding , allergic reactions to the medications ,and not complete pain releife, and alternatives were discussed with the patient, the patient agreed to proceed with the procedure and signed the consent. Patient was taken to the OR and time out was completed. The patient was placed in the prone position on the procedure table. A pillow was placed under the patients chest to increase the cervical interlaminar space. The cervical area was prepped and draped in the usual sterile fashion. Vital signs were closely monitored during the procedure. Conscious sedation was used during the procedure to decrease patients anxiety. Using anterior-posterior fluoroscopy, the C6-7 interlaminar space was identified and the skin over this site was marked and then infiltrated with 1% lidocaine subcutaneously. Subsequently, a 20-gauge 3-1/2-inch Tuohy epidural needle was inserted and advanced toward the epidural space by means of the ``hanging-drop technique and guided by AP and lateral fluoroscopy. The correct needle position in the epidural space was verified with the injection of 2 mL of the water soluble contrast dye [id number] and observing an excellent epidurogram with the epidural spread of the dye, after negative aspiration for blood and CSF and in the absence of paresthesias. then, mixture containing 10 mg Dexamethasone and 2 ml of preservative-free normal saline injected and a washout of epidurogram was seen. Needle was withdrawn intact, skin was cleansed, and bandages were applied. Complications= none. Disposition= patient was placed in supine position and transferred to the recovery room area in stable condition and there was no evidence of upper or lower extremity motor or sensory deficit after the procedure patient was discharged from recovery room after discharge criteria met and home discharge instructions was given by the staff and patient will follow with the pain clinic in 2-4 weeks
[2022-01-14 13:54] VITALS: BP 142/81; PULSE 94
[2022-01-14] MEDS ORDERED: IV FLUID CONTINUATION 1,000 ML IV ONE (13:56)
--- NOTE | 2022-01-14 14:14 | FL ---
Intraoperative/procedural fluoroscopic services were provided. Total fluoroscopy time is 3.2 seconds with a total of 1 submitted images to PACS. Please see the operative/procedural note for further deta ils.
== END 2022-01-14 13:59 | disposition home or self-care (01) ==
LOC: ORPAIN 11:29
PROVIDERS: ATTEND Specialist
DX: M47.22 Other spondylosis with radiculopathy, cervical region (principal); M50.123 Cervical disc disorder at C6-C7 level with radiculopathy; Z88.0 Allergy status to penicillin; Z88.2 Allergy status to sulfonamides; Z88.3 Allergy status to other anti-infective agents; I10 Essential (primary) hypertension; E78.5 Hyperlipidemia, unspecified; J44.9 Chronic obstructive pulmonary disease, unspecified; F17.200 Nicotine dependence, unspecified, uncomplicated; Z85.118 Personal history of other malignant neoplasm of bronchus and lung
CPT/HCPCS: 62321; J2250; J1100; J3010; Q9966

== ENCOUNTER → 2022-02-10 | Outpatient (CLI) | payer MEDICARE ==
[2022-02-10 11:10] VITALS: BP 151/79; PULSE 99; RESP 18; TEMP 98.6
--- NOTE | 2022-02-10 14:45 | P.PAINPG ---
PQRS Measure Charge Sheet Comment: A 81 yr old female with a history of severe and chronic low back pain secondary to lumbar degenerative disc diseases and lumbar spondylosis with facet arthropathy presents today for evaluatin s/p RAUDEL C6-C7. PT states she received 50% pain x 3 weeks relief s/p procedure. Pain level is currently at 5/10 in intensity, constant, localized in the L lower cervical spine, achy throbbing in character w shooting towards the L shoulder blade. Pain escalates as high as 8/10 with cervical movements to the R side. Pain is alleviated with PT x 6 weeks in October 2021, massage integrated w PT, heat, ice, topicals, repositioning and rest. Interventional pain procedures completed include RAUDEL C6-C7 Patient is currently on Ibuprofen Patient denies any side effects of the medication(s), denies excessive drowsiness or sleepiness, denies suicidal ideation and reports that the current pain medication is helping to control the pain and improve activities of daily living. Patient denies any motor or sensory deficits. Patient denies any fever or night sweats, denies any change in the bowel movements or urination. Physical Examination: -Constitutional: Cooperative. Not in acute distress . - Neurologic: Cranial nerve II to XII intact. No focal neurological deficits. - Psychatric: Alert & oriented x 3. Matching mood & appropriate affect. Judgment and insight intact. - Musculoskeletal: Cervical spine: Muscle bulk/ tone/ strength in the bilateral upper extremities normal Vertebral body tenderness to palpation over C6 Spurling test positive Distraction test positive Facet loading test positive Thoracic spine Muscle bulk / tone/ strength in the bilateral paraspinal muscles normal Vertebral body tender to palpation over Facet loading test positive Lumbar spine: Motor bulk/ tone/ strength lower extremities , thigh and legs : 5/5 Deep tendon reflexes : Normal Knee Jerk. Normal Ankle Jerk . Vertebral body tenderness to palpation over Lumbar Facet Loading Test positive Straight Leg Raise: positive at 30 degrees right side/ left side Gaenslen's Test positive Sacral spine : Severe tenderness over the Sacroiliac joint: right side / left side Range of motion: Flexion of the lumbar spine <60 degrees Range of motion: Extension of the lumbar spine <20 degrees Gaenslen's Test positive Jj's Test positive Juno test: positive right side / left side Thigh Thrust Test Sacral Thrust Test Assessment and plan: Chronic low back pain secondary to lumbar degenerative disc disease , lumbar spondylosis with facet arthropathy without myelopathy Recommendation of L paramedian CARMELITA C6-C7 #2. May need a series of injections, up to 3 within a 6 mo period, for optimal pain relief. Risks, benefits of procedure discussed and pt verbalized understanding. Denies anticoagulant use or medical history of diabetes. All patient questions answered MAPS reviewed and it was appropriate. I have spent less than 30 minutes on patient care today. Dr Rose was available by phone for the evaluation of this patient. The time was used to review the medical records including relevant urine studies and Prescription history (MAPs), review of the available imaging, evaluation and examination of the patient, coordination of care with the medical staff and if applicable referring physicians, as well as creation of the medical record PQRS Narrative: Smoking Status Former smoker Hx Alcohol Use (MH) Yes: OCCASSIONAL Home Medications: Ambulatory Orders DULoxetine HCL [Cymbalta] 90 mg PO DAILY 10/16/16 Atorvastatin [Lipitor] 20 mg PO DAILY 12/12/17 Cetirizine HCl/Pseudoephedrine [Zyrtec-D Tablet] 1 tab PO BID PRN 12/12/17 LORazepam [Ativan] 0.5 mg PO Q8H PRN 12/12/17 cycloSPORINE [Restasis] 1 drop BOTH EYES BID 12/12/17 Albuterol Sulfate [Ventolin HFA] 2 puff INHALATION RT-Q6H PRN 04/29/19 amLODIPine BESYLATE/BENAZEPRIL [Lotrel 10-20 MG] 1 cap PO DAILY 04/29/19 predniSONE [Deltasone] 20 mg PO BID #10 tab 04/29/19 Ibuprofen [Motrin] 400 mg PO PRN 01/14/22 Controlled Substance Measures - Controlled Substance Measures Is patient prescribed a controlled substance at discharge?: No
== END ==
LOC: PNWHC3 10:28
PROVIDERS: ATTEND Specialist
DX: M47.816 Spondylosis without myelopathy or radiculopathy, lumbar region (principal); M51.36 Other intervertebral disc degeneration, lumbar region; G89.29 Other chronic pain; Z87.891 Personal history of nicotine dependence; Z88.0 Allergy status to penicillin; Z88.2 Allergy status to sulfonamides
CPT/HCPCS: 99211

== ENCOUNTER 2022-03-18 12:58 | Day surgery (SDC) | payer MEDICARE ==
[2022-03-16 16:46] VITALS: BMI 22.3
[2022-03-18 13:32] VITALS: TEMP 97.3
[2022-03-18] MEDS ORDERED: DEXAMETHASONE SOD PHOSPHATE 10 MG/ML 1 ML VIAL ONE (13:58)
[2022-03-18] MEDS ORDERED: IOPAMIDOL M200 10 ML VIAL ONE (13:58)
--- NOTE | 2022-03-18 14:08 | P.PCN ---
Date of Procedure: 03/18/22 Procedure(s) Performed: PROCEDURE 1. Cervical epidural steroid injection under fluoroscopic guidance, C6-7 (fluoroscopy images available in the radiology department ) 2. Cervical epidurogram. PREOPERATIVE DIAGNOSIS: 1- Cervical Degenerative Disc Diseases 2-cervical spondylosis with cervical Facet arthropathy without myelopathy POSTOPERATIVE DIAGNOSIS: : 1- Cervical Degenerative Disc Diseases , 2-cervical spondylosis with cervical Facet arthropathy without myelopathy ANESTHESIA: Local infiltration with lidocaine 1% 3 mL only EBL 0 PROCEDURE INDICATION: The patient with neck pain and radiculitis unresponsive to conservative treatment consents for procedure. PROCEDURE DESCRIPTION / TECHNIQUE: The patient was seen and identified in the preoperative area. Risks, benefits, complications, including but not limited to infections ,bleeding , allergic reactions to the medications ,and not complete pain releife, and alternatives were discussed with the patient, the patient agreed to proceed with the procedure and signed the consent. Patient was taken to the OR and time out was completed. The patient was placed in the prone position on the procedure table. A pillow was placed under the patients chest to increase the cervical interlaminar space. The cervical area was prepped and draped in the usual sterile fashion. Vital signs were closely monitored during the procedure. Using anterior-posterior fluoroscopy, the C6-7 interlaminar space was identified and the skin over this site was marked and then infiltrated with 1% lidocaine subcutaneously. Subsequently, a 20-gauge 3-1/2-inch Tuohy epidural needle was inserted and advanced toward the epidural space by means of the ``hanging-drop technique and guided by AP and lateral fluoroscopy. The correct needle position in the epidural space was verified with the injection of 2 mL of the water soluble contrast dye [id number]-200 and observing an excellent epidurogram with the epidural spread of the dye, after negative aspiration for blood and CSF and in the absence of paresthesias. then, mixture containing 10 mg Dexamethasone and 2 ml of preservative-free normal saline injected and a washout of epidurogram was seen. Needle was withdrawn intact, skin was cleansed, and bandages were applied. Complications= none. Disposition= patient was placed in supine position and transferred to the recovery room area in stable condition and there was no evidence of upper or lower extremity motor or sensory deficit after the procedure patient was discharged from recovery room after discharge criteria met and home discharge instructions was given by the staff and patient will follow with the pain clinic in 2-4 weeks
[2022-03-18 14:15] VITALS: RESP 18
--- NOTE | 2022-03-18 14:26 | FL ---
EXAMINATION TYPE: FL guided pain mgmt statistic DATE OF EXAM: 03/18/2022 FLUOROSCOPY Fluoroscopy time of 2.6 seconds was used during cervical epidural injection. 1 image/s document/s th e procedure.
[2022-03-18 14:29] VITALS: BP 160/80; PULSE 96
== END 2022-03-18 14:30 | disposition home or self-care (01) ==
LOC: ORPAIN 12:58
PROVIDERS: ATTEND Specialist
DX: M50.123 Cervical disc disorder at C6-C7 level with radiculopathy (principal); M47.22 Other spondylosis with radiculopathy, cervical region; E78.00 Pure hypercholesterolemia, unspecified; Z88.0 Allergy status to penicillin; Z88.2 Allergy status to sulfonamides
CPT/HCPCS: 62321; J1100; Q9966

== ENCOUNTER 2022-10-12 08:53 | Emergency (ER) | payer MEDICARE ==
[2022-10-12 10:08] LABS: Basophils % (A) 0 %; Eosinophils # (A) 0.2 k/uL (0-0.7); Eosinophils % (A) 2 %; HCT 44.5 % (34.0-46.0); HGB 14.8 gm/dL (11.4-16.0); Lymphocytes # (A) 0.7 k/uL (1.0-4.8); Lymphocytes % (A) 5 %; MCH 35.7 pg (25.0-35.0); MCHC 33.3 g/dL (31.0-37.0); Macrocytosis Moderate; Monocytes # (A) 0.9 k/uL (0-1.0); Monocytes % (A) 7 %; Neutrophils # (A) 10.7 k/uL (1.3-7.7); Neutrophils % (A) 84 %; Platelet Count 203 k/uL (150-450); RBC 4.16 m/uL (3.80-5.40); RDW 13.2 % (11.5-15.5); WBC 12.7 k/uL (3.8-10.6)
[2022-10-12 10:20] LABS: Albumin 4.1 g/dL (3.5-5.0); Magnesium 1.5 mg/dL (1.6-2.3); Potassium 4.2 mmol/L (3.5-5.1); Total Bilirubin 1.4 mg/dL (0.2-1.3); Total Protein 7.4 g/dL (6.3-8.2)
--- NOTE | 2022-10-12 10:54 | XR ---
EXAMINATION TYPE: XR chest 2V DATE OF EXAM: 10/12/2022 COMPARISON: Chest x-ray and CTA chest December 12, 2017 HISTORY: Difficulty in breathing TECHNIQUE: Frontal and lateral views of the chest are obtained. FINDINGS: Underlying emphysematous change is redemonstrated. Stable left basilar linear scarring and slightly elevated left hemidiaphragm. New small to tiny left pleural effusion. Right lung remains cl ear. The cardiac silhouette size is stable and within normal limits. There is underlying S-shaped sco liosis. Surgical change to the lumbar spine is partially imaged. IMPRESSION: New small to tiny left pleural effusion. Background chronic emphysematous change with le ft basilar linear scarring and/or atelectasis redemonstrated.
[2022-10-12] MEDS ORDERED: methylPREDNISolone SOD SUCCI 125 MG/2 ML VIAL IV STA (11:01)
[2022-10-12] MEDS ORDERED: IPRATROPIUM-ALBUTEROL 3 ML NEB INHALATION STA (11:02)
[2022-10-12] MEDS ORDERED: ONDANSETRON 4 MG/2 ML VIAL IVP STA (11:03)
--- NOTE | 2022-10-12 11:07 | ED ---
General Adult HPI - General Chief complaint: Shortness of Breath Stated complaint: SOB, Abd Pain,Nausea Time Seen by Provider: 10/12/22 10:46 Source: patient, RN notes reviewed Mode of arrival: ambulatory Limitations: no limitations - History of Present Illness Initial comments: This an 82-year-old female presents emergency Department with chief complaint of shortness of breath. Patient states that she does have known lung cancer but states her last week she's been having increasing shortness of breath she is supposed to be going for biopsy today states that she cannot tolerate shortness of breath or presented emergency department. She is followed by Efraín Fine for her oncology. She states she is not on any current treatment. She does admit t hat she has some ongoing nausea denies any localized upper abdominal pain or lower abdominal pain. No dysuria. Patient states that she was drinking. She's had some elevated liver enzymes in the past. - Related Data Home Medications Medication Instructions Recorded Confirmed DULoxetine HCL [Cymbalta] 90 mg PO DAILY 10/16/16 10/12/22 Atorvastatin [Lipitor] 20 mg PO DAILY 12/12/17 10/12/22 LORazepam [Ativan] 0.5 mg PO Q8H PRN 12/12/17 10/12/22 Ibuprofen [Motrin] 400 mg PO Q6H PRN 01/14/22 10/12/22 Fluticasone/Umeclidin/Vilanter 1 puff INHALATION RT-DAILY 10/12/22 10/12/22 [Trelegy Ellipta 100-62.5-25] Metoprolol Succinate (ER) [Toprol 25 mg PO DAILY 10/12/22 10/12/22 Xl] Psyllium Husk 100% [Metamucil 6 gm PO HS 10/12/22 10/12/22 Packet] Previous Rx's Medication Instructions Recorded Albuterol Inhaler [Ventolin Hfa 1 - 2 puff INHALATION Q6H PRN #1 10/12/22 Inhaler] each Ondansetron Odt [Zofran Odt] 4 mg PO Q8HR PRN #14 tab 10/12/22 predniSONE 50 mg PO DAILY #5 tab 10/12/22 Allergies Allergy/AdvReac Type Severity Reaction Status Date / Time Penicillins Allergy Rash/Hives Verified 10/12/22 11:43 sulfamethoxazole Allergy Rash/Hives/ Verified 10/12/22 11:43 [From Bactrim] Blisters trimethoprim [From Bactrim] Allergy Rash/Hives/ Verified 10/12/22 09:29 Blisters Review of Systems ROS Statement: Those systems with pertinent positive or pertinent negative responses have been documented in the HPI. ROS Other: All systems not noted in ROS Statement are negative. Past Medical History Past Medical History: COPD, Hyperlipidemia, Hypertension, Osteoarthritis (OA) Additional Past Medical History / Comment(s): lung bx and post collapsed lung,migraines in past, osteoporosis, sinus problems, benign colon polyps. lung cancer 2017 "occ my heart beats fast". States no radiation or chemo after her lung surgery. History of Any Multi-Drug Resistant Organisms: None Reported Past Surgical History: Back Surgery, Orthopedic Surgery, Tubal Ligation Additional Past Surgical History / Comment(s): lt shoulder-rotator cuff, lung bx and lower half of left lung removed d/t cancer,philip cataracts, philip bunionectomies and philip 2nd toes straightend, colonoscopy-benign polyps removed, Past Anesthesia/Blood Transfusion Reactions: No Reported Reaction Past Psychological History: No Psychological Hx Reported Smoking Status: Former smoker Past Alcohol Use History: Daily, Occasional Past Drug Use History: None Reported - Past Family History Mother Family Medical History: Congestive Heart Failure (CHF) Additional Family Medical History / Comment(s): Brain Aneurysm Father Family Medical History: Cancer Additional Family Medical History / Comment(s): Lymphoma-non hodgkins General Exam Limitations: no limitations General appearance: alert, in no apparent distress Head exam: Present: atraumatic, normocephalic, normal inspection Eye exam: Present: normal appearance, PERRL, EOMI. Absent: scleral icterus, conjunctival injection, periorbital swelling ENT exam: Present: normal exam, mucous membranes moist Neck exam: Present: normal inspection, full ROM. Absent: tenderness, meningismus, lymphadenopathy Respiratory exam: Present: wheezes. Absent: normal lung sounds bilaterally, respiratory distress, rales, rhonchi, stridor Cardiovascular Exam: Present: normal rhythm, tachycardia, normal heart sounds. Absent: systolic murmur, diastolic murmur, rubs, gallop, clicks GI/Abdominal exam: Present: soft, normal bowel sounds. Absent: distended, tenderness, guarding, rebound, rigid Back exam: Absent: CVA tenderness (R), CVA tenderness (L) Neurological exam: Present: alert Skin exam: Present: warm, dry, intact, normal color. Absent: rash Course Vital Signs 10/12/22 10/12/22 10/12/22 09:25 11:28 11:39 Temperature 98.4 F 98.5 F Pulse Rate 116 H 108 H Respiratory 20 22 21 Rate Blood Pressure 150/85 142/77 O2 Sat by Pulse 94 L 93 L Oximetry 10/12/22 10/12/22 10/12/22 12:05 12:18 14:24 Temperature 98.6 F Pulse Rate 78 88 107 H Respiratory 20 Rate Blood Pressure 141/77 O2 Sat by Pulse 90 L Oximetry EKG Findings - EKG Comments: EKG Findings:: EKG performed at 19:47 sinus tachycardia with a rate of 112 [place] 124 QRS 77 Qt/QTC 309/376 - EKG Results: EKG: interpreted by JOHN Medical Decision Making - Medical Decision Making Was pt. sent in by a medical professional or institution (, PA, DETHISTLER OPERATOR, urgent care, hospital, or senior care...) When possible be specific @ -No Did you speak to anyone other than the patient for history (EMS, parent, family, police, friend...)? What history was obtained from this source @ -No Did you review nursing and triage notes (agree or disagree)? Why? @ -I reviewed and agree with nursing and triage notes Were old charts reviewed (outside hosp., previous admission, EMS record, old EKG, old radiological studies, urgent care reports/EKG's, senior care records)? Report findings @ -No old charts were reviewed Differential Diagnosis (chest pain, altered mental status, abdominal pain women, abdominal pain men, vaginal bleeding, weakness, fever, dyspnea, syncope, headache, dizziness, GI bleed, back pain, seizure, CVA, palpatations, mental health, musculoskeletal)? @ -Differential Dyspnea: Coronary syndrome, arrhythmia, tamponade, asthma, COPD, pulmonary embolism, pneu monia, pneumothorax, pulmonary effusion, anaphylaxis, diabetic ketoacidosis, flailed chest, pulmonary contusion, diaphragmatic rupture, anemia, neuromuscular, this is not meant to be an all-inclusive list. e EKG interpreted by me (3pts min.). @ -As above X-rays interpreted by me (1pt min.). @ -Chest x-ray shows no definite acute process CT interpreted by me (1pt min.). @ -CT PE study of the chest shows perihilar mass small effusion U/S interpreted by me (1pt. min.). @ -None done What testing was considered but not performed or refused? (CT, X-rays, U/S, labs)? Why? @ -None What meds were considered but not given or refused? Why? @ -None Did you discuss the management of the patient with other professionals (professionals i.e. , PA, DETHISTLER OPERATOR, lab, RT, psych nurse, director of social services, powder press operator, teacher, client sales and service officer, rn case management)? Give summary @ -No Was smoking cessation discussed for >3mins.? @ -No Was critical care preformed (if so, how long)? @ -No Were there social determinants of health that impacted care today? How? (Homelessness, low income, unemployed, alcoholism, drug addiction, transportation, low edu. Level, literacy, decrease access to med. care, longterm, rehab)? @ -No Was there de-escalation of care discussed even if they declined (Discuss DNR or withdrawal of care, Hospice)? DNR status @ -No What co-morbidities impacted this encounter? (DM, HTN, Smoking, COPD, CAD, Cancer, CVA, ARF, Chemo, Hep., AIDS, mental health diagnosis, sleep apnea, morbid obesity)? @ -COPD, lung cancer Was patient admitted / discharged? Hospital course, mention meds given and route, prescriptions, significant lab abnormalities, going to OR and other pertinent info. @ -Patient CT shows evidence of lung cancer which is known to the patient patient is pending biopsy and further workup with oncology. I did offer admission versus discharge patient states that she does not want stay in the hospital she no she has lung cancer. She does feel improved after breathing treatment and nausea meds. She is requesting this for at home. I do agree with this plan given her risk of going home. Patient will return for worsening changes symptoms. Undiagnosed new problem with uncertain prognosis? @ -No Drug Therapy requiring intensive monitoring for toxicity (Heparin, Nitro, Insulin, Cardizem)? @ -No Were any procedures done? @ -No Diagnosis/symptom? @ -[COPD lung cancer Acute, or Chronic, or Acute on Chronic? @ -Acute Uncomplicated (without systemic symptoms) or Complicated (systemic symptoms)? @ -Complicated Side effects of treatment? @ -No Exacerbation, Progression, or Severe Exacerbation? @ -No Poses a threat to life or bodily function? How? (Chest pain, [place], CA, pneumonia, PE, COPD, DKA, ARF, appy, cholecystitis, CVA, Diverticulitis, Homicidal, Suicidal, threat to staff... and all critical care pts) @ -No - Lab Data Result diagrams: 10/12/22 09:59 10/12/22 09:59 Lab Results 10/12/22 10/12/22 10/12/22 Range/Units 09:59 09:59 09:59 WBC 12.7 H (3.8-10.6) k/uL RBC 4.16 (3.80-5.40) m/uL Hgb 14.8 (11.4-16.0) gm/dL Hct 44.5 (34.0-46.0) % MCV 107.0 H (80.0-100.0) fL MCH 35.7 H (25.0-35.0) pg MCHC 33.3 (31.0-37.0) g/dL RDW 13.2 (11.5-15.5) % Plt Count 203 (150-450) k/uL MPV 8.0 Neutrophils % 84 % Lymphocytes % 5 % Monocytes % 7 % Eosinophils % 2 % Basophils % 0 % Neutrophils # 10.7 H (1.3-7.7) k/uL Lymphocytes # 0.7 L (1.0-4.8) k/uL Monocytes # 0.9 (0-1.0) k/uL Eosinophils # 0.2 (0-0.7) k/uL Basophils # 0.0 (0-0.2) k/uL Macrocytosis Moderate PT 10.0 (9.0-12.0) sec INR 0.9 (<1.2) APTT 24.4 (22.0-30.0) sec Sodium 133 L (137-145) mmol/L Potassium 4.2 (3.5-5.1) mmol/L Chloride 102 (98-107) mmol/L Carbon Dioxide 20 L (22-30) mmol/L Anion Gap 11 mmol/L BUN 9 (7-17) mg/dL Creatinine 0.75 (0.52-1.04) mg/dL Est GFR (CKD-EPI)AfAm 87 (>60 ml/min/1.73 sqM) Est GFR (CKD-EPI)NonAf 76 (>60 ml/min/1.73 sqM) Glucose 110 H (74-99) mg/dL Calcium 10.0 (8.4-10.2) mg/dL Magnesium 1.5 L (1.6-2.3) mg/dL Total Bilirubin 1.4 H (0.2-1.3) mg/dL AST 27 (14-36) U/L ALT 20 (4-34) U/L Alkaline Phosphatase 126 (38-126) U/L Troponin I (0.000-0.034) ng/mL NT-Pro-B Natriuret Pep pg/mL Total Protein 7.4 (6.3-8.2) g/dL Albumin 4.1 (3.5-5.0) g/dL Urine Color Urine Appearance (Clear) Urine pH (5.0-8.0) Ur Specific [place] (1.001-1.035) Urine Protein (Negative) Urine Glucose (UA) (Negative) Urine Ketones (Negative) Urine Blood (Negative) Urine Nitrite (Negative) Urine Bilirubin (Negative) Urine Urobilinogen (<2.0) mg/dL Ur Leukocyte Esterase (Negative) Urine WBC (0-5) /hpf Ur Squamous Epith Cells (0-4) /hpf Urine Bacteria (None) /hpf Urine Mucus (None) /hpf Influenza Type A (PCR) (Not Detectd) Influenza Type B (PCR) (Not Detectd) RSV (PCR) (Not Detectd) SARS-CoV-2 (PCR) (Not Detectd) 10/12/22 10/12/22 10/12/22 Range/Units 09:59 09:59 11:16 WBC (3.8-10.6) k/uL RBC (3.80-5.40) m/uL Hgb (11.4-16.0) gm/dL Hct (34.0-46.0) % MCV (80.0-100.0) fL MCH (25.0-35.0) pg MCHC (31.0-37.0) g/dL RDW (11.5-15.5) % Plt Count (150-450) k/uL MPV Neutrophils % % Lymphocytes % % Monocytes % % Eosinophils % % Basophils % % Neutrophils # (1.3-7.7) k/uL Lymphocytes # (1.0-4.8) k/uL Monocytes # (0-1.0) k/uL Eosinophils # (0-0.7) k/uL Basophils # (0-0.2) k/uL Macrocytosis PT (9.0-12.0) sec INR (<1.2) APTT (22.0-30.0) sec Sodium (137-145) mmol/L Potassium (3.5-5.1) mmol/L Chloride (98-107) mmol/L Carbon Dioxide (22-30) mmol/L Anion Gap mmol/L BUN (7-17) mg/dL Creatinine (0.52-1.04) mg/dL Est GFR (CKD-EPI)AfAm (>60 ml/min/1.73 sqM) Est GFR (CKD-EPI)NonAf (>60 ml/min/1.73 sqM) Glucose (74-99) mg/dL Calcium (8.4-10.2) mg/dL Magnesium (1.6-2.3) mg/dL Total Bilirubin (0.2-1.3) mg/dL AST (14-36) U/L ALT (4-34) U/L Alkaline Phosphatase (38-126) U/L Troponin I <0.012 (0.000-0.034) ng/mL NT-Pro-B Natriuret Pep 476 pg/mL Total Protein (6.3-8.2) g/dL Albumin (3.5-5.0) g/dL Urine Color Urine Appearance (Clear) Urine pH (5.0-8.0) Ur Specific [place] (1.001-1.035) Urine Protein (Negative) Urine Glucose (UA) (Negative) Urine Ketones (Negative) Urine Blood (Negative) Urine Nitrite (Negative) Urine Bilirubin (Negative) Urine Urobilinogen (<2.0) mg/dL Ur Leukocyte Esterase (Negative) Urine WBC (0-5) /hpf Ur Squamous Epith Cells (0-4) /hpf Urine Bacteria (None) /hpf Urine Mucus (None) /hpf Influenza Type A (PCR) Not Detected (Not Detectd) Influenza Type B (PCR) Not Detected (Not Detectd) RSV (PCR) Not Detected (Not Detectd) SARS-CoV-2 (PCR) Not Detected (Not Detectd) 10/12/22 Range/Units 11:23 WBC (3.8-10.6) k/uL RBC (3.80-5.40) m/uL Hgb (11.4-16.0) gm/dL Hct (34.0-46.0) % MCV (80.0-100.0) fL MCH (25.0-35.0) pg MCHC (31.0-37.0) g/dL RDW (11.5-15.5) % Plt Count (150-450) k/uL MPV Neutrophils % % Lymphocytes % % Monocytes % % Eosinophils % % Basophils % % Neutrophils # (1.3-7.7) k/uL Lymphocytes # (1.0-4.8) k/uL Monocytes # (0-1.0) k/uL Eosinophils # (0-0.7) k/uL Basophils # (0-0.2) k/uL Macrocytosis PT (9.0-12.0) sec INR (<1.2) APTT (22.0-30.0) sec Sodium (137-145) mmol/L Potassium (3.5-5.1) mmol/L Chloride (98-107) mmol/L Carbon Dioxide (22-30) mmol/L Anion Gap mmol/L BUN (7-17) mg/dL Creatinine (0.52-1.04) mg/dL Est GFR (CKD-EPI)AfAm (>60 ml/min/1.73 sqM) Est GFR (CKD-EPI)NonAf (>60 ml/min/1.73 sqM) Glucose (74-99) mg/dL Calcium (8.4-10.2) mg/dL Magnesium (1.6-2.3) mg/dL Total Bilirubin (0.2-1.3) mg/dL AST (14-36) U/L ALT (4-34) U/L Alkaline Phosphatase (38-126) U/L Troponin I (0.000-0.034) ng/mL NT-Pro-B Natriuret Pep pg/mL Total Protein (6.3-8.2) g/dL Albumin (3.5-5.0) g/dL Urine Color Yellow Urine Appearance Clear (Clear) Urine pH 6.5 (5.0-8.0) Ur Specific [place] 1.023 (1.001-1.035) Urine Protein 3+ H (Negative) Urine Glucose (UA) Negative (Negative) Urine Ketones 1+ H (Negative) Urine Blood Negative (Negative) Urine Nitrite Negative (Negative) Urine Bilirubin 1+ H (Negative) Urine Urobilinogen 2.0 (<2.0) mg/dL Ur Leukocyte Esterase Large H (Negative) Urine WBC 7 H (0-5) /hpf Ur Squamous Epith Cells 6 H (0-4) /hpf Urine Bacteria Rare H (None) /hpf Urine Mucus Rare H (None) /hpf Influenza Type A (PCR) (Not Detectd) Influenza Type B (PCR) (Not Detectd) RSV (PCR) (Not Detectd) SARS-CoV-2 (PCR) (Not Detectd) Disposition Clinical Impression: Lung cancer, COPD (chronic obstructive pulmonary disease) Disposition: HOME SELF-CARE Condition: Stable Instructions (If sedation given, give patient instructions): COPD (Chronic Obstructive Pulmonary Disease) (ED) Additional Instructions: Please return to the Emergency Department if symptoms worsen or any other concerns. Prescriptions: predniSONE 50 mg PO DAILY #5 tab Albuterol Inhaler [Ventolin Hfa Inhaler] 1 - 2 puff INHALATION Q6H PRN #1 each PRN Reason: Shortness Of Breath Ondansetron Odt [Zofran Odt] 4 mg PO Q8HR PRN #14 tab PRN Reason: Nausea Is patient prescribed a controlled substance at d/c from ED?: No Referrals: Tamir Sands [Dietitian/Molding Machine Operator] - 1-2 days Time of Disposition: 14:17
[2022-10-12 11:17] LABS: INR 0.9 (<1.2); Partial Thromboplastin Time 24.4 sec (22.0-30.0)
[2022-10-12 11:54] LABS: Appearance,Urine Clear (Clear); Bacteria,Urine Rare /hpf; Bilirubin,Urine 1+ (Negative); Blood,Urine Negative (Negative); Color,Urine Yellow; Glucose,Urine (UA) Negative (Negative); Ketones,Urine 1+ (Negative); Leukocyte Esterase,Urine Large (Negative); Mucus,Urine Rare /hpf; Nitrite,Urine Negative (Negative); PH, Urine 6.5 (5.0-8.0); Protein,Urine 3+ (Negative); Specific Gravity,Urine 1.023 (1.001-1.035); Squamous Epithelial Cell,Urine 6 /hpf (0-4); WBC,Urine 7 /hpf (0-5)
--- NOTE | 2022-10-12 13:45 | CT ---
CT CHEST FOR PULMONARY EMBOLISM. EXAMINATION TYPE: CT chest angio for PE DATE OF EXAM: 10/12/2022 INDICATION: SOB, PE, lung cancer CT DLP: 220.2 mGycm, Automated exposure control for dose reduction was used. CONTRAST: Patient injected with 100 ml mL of Isovue 370. COMPARISON: 12/12/2017 TECHNIQUE: CT of the chest is performed on a spiral scan at 2 mm thick sections. Study is performed with intravenous contrast timed for evaluation for pulmonary embolism. This will limit additional po rtions of the evaluation. 3-D MIP images reconstructed by the technologist are reviewed on the compu ter in the coronal and sagittal planes. FINDINGS: No persistent filling defects are evident to suggest an acute pulmonary embolism. Thee is a prominent 1.0 cm lymph node adjacent to the aortic arch above the main pulmonary artery in the mediastinum. Additional large lymphadenopathy is not identified. The ascending aorta diameter at the level of the main pulmonary artery is 3.1 cm. The main pulmonary artery diameter at the bifurca tion is 2.6 cm. There is a left infrahilar mass measuring 4.3 x 2.5 cm. There is a 0.6 cm nodule in the posterior lef t mid lung. Lung window series 401 image 62. There is a posterior pleural-based nodule measuring 0.5 cm. Series 406 image 71. Faint nodularities within the anterior right midlung measuring 0.3 cm. Serie s [address] section through the upper abdomen are unremarkable. Advanced osteoarthritic degenerative type changes are at the glenohumeral junctions bilaterally. IMPRESSIONS: 1. Left infrahilar mass with scattered small nodules. Correlate for primary metastatic colon cancer. 2. Enlarged lymph node adjacent to the ascending thoracic aorta. 3. No acute pulmonary embolism.
[2022-10-12 14:45] VITALS: BP 141/77; PULSE 107; RESP 20; TEMP 98.6
== END 2022-10-12 14:35 | disposition home or self-care (01) ==
LOC: EC 08:53
DX: J44.9 Chronic obstructive pulmonary disease, unspecified (principal); C34.90 Malignant neoplasm of unspecified part of unspecified bronchus or lung; I10 Essential (primary) hypertension; E78.5 Hyperlipidemia, unspecified; M19.90 Unspecified osteoarthritis, unspecified site; Z79.1 Long term (current) use of non-steroidal anti-inflammatories (NSAID); Z79.52 Long term (current) use of systemic steroids; Z79.899 Other long term (current) drug therapy; Z87.891 Personal history of nicotine dependence; Z88.0 Allergy status to penicillin; Z88.1 Allergy status to other antibiotic agents; Z88.2 Allergy status to sulfonamides; Z20.822 Contact with and (suspected) exposure to COVID-19
CPT/HCPCS: 36415; 94640; 93005; 83880; 80053; 83735; 84484; 85025; 85610; 85730; 81001; 87636; 71046; 71275; 99285; 96374; 96375; J2930; J2405; Q9967

== ENCOUNTER 2023-06-28 13:35 | Observation (INO) | payer MEDICARE ==
[2023-06-28] MEDS ORDERED: methylPREDNISolone SOD SUCCI 125 MG/2 ML VIAL IV STA (13:56)
[2023-06-28] MEDS ORDERED: IPRATROPIUM 0.5 MG/2.5 ML NEBU INHALATION STA (13:56)
[2023-06-28] MEDS ORDERED: ALBUTEROL NEBULIZED 2.5 MG/3 ML INHALATION STA (13:56)
--- NOTE | 2023-06-28 14:11 | ED ---
General Adult HPI - General Chief complaint: Shortness of Breath Stated complaint: BRYANNA Time Seen by Provider: 06/28/23 13:45 Source: patient, RN notes reviewed, old records reviewed Mode of arrival: ambulatory Limitations: no limitations - History of Present Illness Initial comments: This is an 83-year-old female who has a past medical history significant for lung cancer and COPD per patient states she still occasionally smokes. Patient states she's coming in today because of difficulty breathing been getting worse over the last couple of days. Patient states she has an increased cough and increased sputum production. Patient denies any fever chills per patient denies any chest pain or palpitations. Patient denies abdominal pain patient denies nausea vomiting diarrhea. Patient denies knowing anyone who has had cold or influenza recently. Patient denies any swelling or pain in her calf. - Related Data Home Medications Medication Instructions Recorded Confirmed DULoxetine HCL [Cymbalta] 90 mg PO DAILY 10/16/16 10/12/22 Atorvastatin [Lipitor] 20 mg PO DAILY 12/12/17 10/12/22 LORazepam [Ativan] 0.5 mg PO Q8H PRN 12/12/17 10/12/22 Ibuprofen [Motrin] 400 mg PO Q6H PRN 01/14/22 10/12/22 Fluticasone/Umeclidin/Vilanter 1 puff INHALATION RT-DAILY 10/12/22 10/12/22 [Trelegy Ellipta 100-62.5-25] Metoprolol Succinate (ER) [Toprol 25 mg PO DAILY 10/12/22 10/12/22 Xl] Psyllium Husk 100% [Metamucil 6 gm PO HS 10/12/22 10/12/22 Packet] Previous Rx's Medication Instructions Recorded Albuterol Inhaler [Ventolin Hfa 1 - 2 puff INHALATION Q6H PRN #1 10/12/22 Inhaler] each Ondansetron Odt [Zofran Odt] 4 mg PO Q8HR PRN #14 tab 10/12/22 predniSONE 50 mg PO DAILY #5 tab 10/12/22 Allergies Allergy/AdvReac Type Severity Reaction Status Date / Time Penicillins Allergy Rash/Hives Verified 06/28/23 13:45 sulfamethoxazole Allergy Rash/Hives/ Verified 06/28/23 13:45 [From Bactrim] Blisters trimethoprim [From Bactrim] Allergy Rash/Hives/ Verified 06/28/23 13:45 Blisters Review of Systems ROS Statement: Those systems with pertinent positive or pertinent negative responses have been documented in the HPI. ROS Other: All systems not noted in ROS Statement are negative. Past Medical History Past Medical History: COPD, Hyperlipidemia, Hypertension, Osteoarthritis (OA) Additional Past Medical History / Comment(s): lung bx and post collapsed lung,migraines in past, osteoporosis, sinus problems, benign colon polyps. lung cancer 2017 "occ my heart beats fast". States no radiation or chemo after her lung surgery. emphysema History of Any Multi-Drug Resistant Organisms: None Reported Past Surgical History: Back Surgery, Orthopedic Surgery, Tubal Ligation Additional Past Surgical History / Comment(s): lt shoulder-rotator cuff, lung bx and lower half of left lung removed d/t cancer,philip cataracts, philip bunionectomies and philip 2nd toes straightend, colonoscopy-benign polyps removed, Past Anesthesia/Blood Transfusion Reactions: No Reported Reaction Past Psychological History: No Psychological Hx Reported Smoking Status: Former smoker Past Alcohol Use History: Daily, Occasional Past Drug Use History: None Reported - Past Family History Mother Family Medical History: Congestive Heart Failure (CHF) Additional Family Medical History / Comment(s): Brain Aneurysm Father Family Medical History: Cancer Additional Family Medical History / Comment(s): Lymphoma-non hodgkins General Exam - General Exam Comments Initial Comments: GENERAL: Patient is well-developed and well-nourished. Patient is nontoxic and well- hydrated and is in mild distress. ENT: Neck is soft and supple. No significant lymphadenopathy is noted. Oropharynx is clear. Moist mucous membranes. Neck has full range of motion without eliciting any pain. There is no thyroid enlargement and no masses were felt. EYES: The sclera were anicteric and conjunctiva were pink and moist. Extraocular movements were intact and pupils were equal round and reactive to light. Eyelids were unremarkable. PULMONARY: Patient has expiratory wheezing and crackles in the bases CARDIOVASCULAR: There is a regular rate and rhythm without any murmurs gallops or rubs. ABDOMEN: Soft and nontender with normal bowel sounds. No palpable organomegaly was noted. There is no palpable pulsatile mass. SKIN: Skin is clear with no lesions or rashes and otherwise unremarkable. NEUROLOGIC: Patient is alert and oriented x3. Cranial nerves II through XII are grossly intact. Motor and sensory are also intact. Normal speech, volume and content. Symmetrical smile. MUSCULOSKELETAL: Normal extremities with adequate strength and full range of motion. She has no swelling to the lower extremity. Patient has no calf tenderness. LYMPHATICS: No significant lymphadenopathy is noted PSYCHIATRIC: Normal psychiatric evaluation. Limitations: no limitations Course Vital Signs 06/28/23 06/28/23 06/28/23 13:41 14:10 14:37 Temperature 98.7 F Pulse Rate 111 H 105 H 102 H Respiratory 18 22 Rate Blood Pressure 151/79 141/73 O2 Sat by Pulse 90 L 97 Oximetry 06/28/23 06/28/23 14:56 16:20 Temperature Pulse Rate 103 H 113 H Respiratory 20 Rate Blood Pressure 135/74 O2 Sat by Pulse 94 L Oximetry Medical Decision Making - Medical Decision Making EKG is interpreted by myself. EKG shows a sinus tachycardia at 100 bpm [place] interval 232 QRS 77 QT interval 3:30 QTC is 387 patient's EKG shows no ST segment elevation or depression. Was pt. sent in by a medical professional or institution (, PA, SIEBEL CONSULTANT, urgent care, hospital, or correction...) When possible be specific @ -No Did you speak to anyone other than the patient for history (EMS, parent, family, police, friend...)? What history was obtained from this source @ -No Did you review nursing and triage notes (agree or disagree)? Why? @ -I reviewed and agree with nursing and triage notes Were old charts reviewed (outside hosp., previous admission, EMS record, old EKG, old radiological studies, urgent care reports/EKG's, correction records)? Report findings @ -I reviewed prior lab work in prior charts on this patient Differential Diagnosis (chest pain, altered mental status, abdominal pain women, abdominal pain men, vaginal bleeding, weakness, fever, dyspnea, syncope, headac he, dizziness, GI bleed, back pain, seizure, CVA, palpatations, mental health, musculoskeletal)? @ -Differential Dyspnea: Coronary syndrome, arrhythmia, tamponade, asthma, COPD, pulmonary embolism, pneumonia, pneumothorax, pulmonary effusion, anaphylaxis, diabetic ketoacidosis, flailed chest, pulmonary contusion, diaphragmatic rupture, anemia, neuromuscular, this is not meant to be an all-inclusive list. EKG interpreted by me (3pts min.). @ -As above X-rays interpreted by me (1pt min.). @ -Chest x-ray showed no acute abnormality CT interpreted by me (1pt min.). @ -None done U/S interpreted by me (1pt. min.). @ -None done What testing was considered but not performed or refused? (CT, X-rays, U/S, lab s)? Why? @ -None What meds were considered but not given or refused? Why? @ -None Did you discuss the management of the patient with other professionals (professionals i.e. DrCass, PA, SIEBEL CONSULTANT, lab, RT, psych nurse, psychiatric social worker, intake coordinator, teacher, president and chief commercial officer, watch case polisher)? Give summary @ -I spoke with Dr. Cristina she agreed to admit the patient Was smoking cessation discussed for >3mins.? @ -No Was critical care preformed (if so, how long)? @ -No Were there social determinants of health that impacted care today? How? (Homelessness, low income, unemployed, alcoholism, drug addiction, transportation, low edu. Level, literacy, decrease access to med. care, half-way, rehab)? @ -No Was there de-escalation of care discussed even if they declined (Discuss DNR or withdrawal of care, Hospice)? DNR status @ -No What co-morbidities impacted this encounter? (DM, HTN, Smoking, COPD, CAD, Cancer, CVA, ARF, Chemo, Hep., AIDS, mental health diagnosis, sleep apnea, morbid obesity)? @ -None Was patient admitted / discharged? Hospital course, mention meds given and route, prescriptions, significant lab abnormalities, going to OR and other pertinent info. @ -She received couple breathing treatments as well as steroids for the exacerbation of COPD. Patient also received Rocephin because of her bad COPD and the fact that she was coughing quite a bit more with the a lot of sputum pr oduction. I spoke with Dr. Cristina she agreed to admit the patient admitted the patient wrote admitting orders. Undiagnosed new problem with uncertain prognosis? @ -No Drug Therapy requiring intensive monitoring for toxicity (Heparin, Nitro, I nsulin, Cardizem)? @ -No Were any procedures done? @ -No Diagnosis/symptom? @ -COPD exacerbation Acute, or Chronic, or Acute on Chronic? @ -Acute Uncomplicated (without systemic symptoms) or Complicated (systemic symptoms)? @ -Complicated Side effects of treatment? @ -No Exacerbation, Progression, or Severe Exacerbation? @ -No Poses a threat to life or bodily function? How? (Chest pain, [place], AL, pneumonia, PE, COPD, DKA, ARF, appy, cholecystitis, CVA, Diverticulitis, Homicidal, Suicidal, threat to staff... and all critical care pts) @ -Yes this could lead to hypoxia and end organ dysfunction - Lab Data Result diagrams: 06/28/23 14:14 06/28/23 14:14 Lab Results 06/28/23 06/28/23 06/28/23 Range/Units 14:14 14:14 14:14 WBC 11.3 H (3.8-10.6) k/uL RBC 4.20 (3.80-5.40) m/uL Hgb 14.6 (11.4-16.0) gm/dL Hct 44.2 (34.0-46.0) % MCV 105.4 H (80.0-100.0) fL MCH 34.8 (25.0-35.0) pg MCHC 33.1 (31.0-37.0) g/dL RDW 12.8 (11.5-15.5) % Plt Count 258 (150-450) k/uL MPV 8.0 Neutrophils % 86 % Lymphocytes % 5 % Monocytes % 6 % Eosinophils % 1 % Basophils % 0 % Neutrophils # 9.7 H (1.3-7.7) k/uL Lymphocytes # 0.5 L (1.0-4.8) k/uL Monocytes # 0.7 (0-1.0) k/uL Eosinophils # 0.2 (0-0.7) k/uL Basophils # 0.1 (0-0.2) k/uL Macrocytosis Slight PT 9.4 L (10.0-12.5) sec INR 0.8 (<1.2) APTT 24.2 (22.0-30.0) sec Sodium (137-145) mmol/L Potassium (3.5-5.1) mmol/L Chloride (98-107) mmol/L Carbon Dioxide (22-30) mmol/L Anion Gap mmol/L BUN (7-17) mg/dL Creatinine (0.52-1.04) mg/dL Est GFR (CKD-EPI)AfAm (>60 ml/min/1.73 sqM) Est GFR (CKD-EPI)NonAf (>60 ml/min/1.73 sqM) Glucose (74-99) mg/dL Plasma Lactic Acid Rashaun (0.7-2.0) mmol/L Calcium (8.4-10.2) mg/dL Total Bilirubin (0.2-1.3) mg/dL AST (14-36) U/L ALT (4-34) U/L Alkaline Phosphatase (38-126) U/L Troponin I <0.012 (0.000-0.034) ng/mL NT-Pro-B Natriuret Pep pg/mL Total Protein (6.3-8.2) g/dL Albumin (3.5-5.0) g/dL Influenza Type A (PCR) (Not Detectd) Influenza Type B (PCR) (Not Detectd) RSV (PCR) (Not Detectd) SARS-CoV-2 (PCR) (Not Detectd) 06/28/23 06/28/23 06/28/23 Range/Units 14:14 14:14 14:14 WBC (3.8-10.6) k/uL RBC (3.80-5.40) m/uL Hgb (11.4-16.0) gm/dL Hct (34.0-46.0) % MCV (80.0-100.0) fL MCH (25.0-35.0) pg MCHC (31.0-37.0) g/dL RDW (11.5-15.5) % Plt Count (150-450) k/uL MPV Neutrophils % % Lymphocytes % % Monocytes % % Eosinophils % % Basophils % % Neutrophils # (1.3-7.7) k/uL Lymphocytes # (1.0-4.8) k/uL Monocytes # (0-1.0) k/uL Eosinophils # (0-0.7) k/uL Basophils # (0-0.2) k/uL Macrocytosis PT (10.0-12.5) sec INR (<1.2) APTT (22.0-30.0) sec Sodium 135 L (137-145) mmol/L Potassium 4.9 (3.5-5.1) mmol/L Chloride 99 (98-107) mmol/L Carbon Dioxide 20 L (22-30) mmol/L Anion Gap 16 mmol/L BUN 11 (7-17) mg/dL Creatinine 0.66 (0.52-1.04) mg/dL Est GFR (CKD-EPI)AfAm >90 (>60 ml/min/1.73 sqM) Est GFR (CKD-EPI)NonAf 83 (>60 ml/min/1.73 sqM) Glucose 98 (74-99) mg/dL Plasma Lactic Acid Rashaun 2.1 H* (0.7-2.0) mmol/L Calcium 10.5 H (8.4-10.2) mg/dL Total Bilirubin 0.7 (0.2-1.3) mg/dL AST 32 (14-36) U/L ALT 17 (4-34) U/L Alkaline Phosphatase 152 H (38-126) U/L Troponin I (0.000-0.034) ng/mL NT-Pro-B Natriuret Pep 579 pg/mL Total Protein 8.6 H (6.3-8.2) g/dL Albumin 4.7 (3.5-5.0) g/dL Influenza Type A (PCR) Not Detected (Not Detectd) Influenza Type B (PCR) Not Detected (Not Detectd) RSV (PCR) Not Detected (Not Detectd) SARS-CoV-2 (PCR) Not Detected (Not Detectd) Disposition Clinical Impression: COPD exacerbation Disposition: ADMITTED IP TO THIS HOSP Referrals: Guicho Sands MD [Primary Care Provider] - 1-2 days Time of Disposition: 17:16
[2023-06-28 14:51] LABS: Basophils # (A) 0.1 k/uL (0-0.2); Basophils % (A) 0 %; Eosinophils # (A) 0.2 k/uL (0-0.7); Eosinophils % (A) 1 %; HCT 44.2 % (34.0-46.0); HGB 14.6 gm/dL (11.4-16.0); Lymphocytes # (A) 0.5 k/uL (1.0-4.8); Lymphocytes % (A) 5 %; MCH 34.8 pg (25.0-35.0); MCHC 33.1 g/dL (31.0-37.0); MCV 105.4 fL (80.0-100.0); Macrocytosis Slight; Monocytes # (A) 0.7 k/uL (0-1.0); Monocytes % (A) 6 %; Neutrophils # (A) 9.7 k/uL (1.3-7.7); Neutrophils % (A) 86 %; Platelet Count 258 k/uL (150-450); RDW 12.8 % (11.5-15.5); WBC 11.3 k/uL (3.8-10.6)
[2023-06-28 15:14] LABS: ALT 17 U/L (4-34); AST 32 U/L (14-36); African American GFR (CKD) >90 (>60 ml/min/1.73 sqM); Albumin 4.7 g/dL (3.5-5.0); Alkaline Phosphatase 152 U/L (38-126); Anion Gap 16 mmol/L; Blood Urea Nitrogen 11 mg/dL (7-17); Calcium 10.5 mg/dL (8.4-10.2); Carbon Dioxide 20 mmol/L (22-30); Chloride 99 mmol/L (98-107); Glucose 98 mg/dL (74-99); Non-African American GFR(CKD) 83 (>60 ml/min/1.73 sqM); Potassium 4.9 mmol/L (3.5-5.1); Sodium 135 mmol/L (137-145); Total Bilirubin 0.7 mg/dL (0.2-1.3); Total Protein 8.6 g/dL (6.3-8.2)
--- NOTE | 2023-06-28 15:15 | XR ---
EXAMINATION TYPE: XR chest 2V DATE OF EXAM: 06/28/2023 COMPARISON: 10/12/2022 INDICATION: Short of breath dyspnea TECHNIQUE: Single frontal view of the chest is obtained. FINDINGS: The heart size is normal. The pulmonary vasculature is normal. The lungs are clear. IMPRESSION: 1. No acute pulmonary process.
[2023-06-28 15:22] LABS: NT-Pro-B-Type Natriuretic Pept 579 pg/mL
[2023-06-28 16:02] LABS: INR 0.8 (<1.2); Partial Thromboplastin Time 24.2 sec (22.0-30.0); Prothrombin Time 9.4 sec (10.0-12.5)
[2023-06-28] MEDS ORDERED: cefTRIAXone IN SWFI 1,000 MG/10 ML SYRINGE IVP STA (16:50)
[2023-06-28] MEDS ORDERED: NALOXONE 0.4 MG/ML 1 ML VIAL IVP PRN (17:18)
[2023-06-28] MEDS ORDERED: IPRATROPIUM-ALBUTEROL 3 ML NEB INHALATION PRN (17:18)
[2023-06-28] MEDS ORDERED: LORazepam 0.5 MG TAB PO PRN (18:00)
[2023-06-28] MEDS: methylPREDNISolone SOD SUCCI 125 MG/2 ML VIAL IV SCH (18:00)
--- NOTE | 2023-06-28 18:00 | P.HPIM ---
History of Present Illness H&P Date: 06/28/23 Patient is a 83-year-old female with history of metastatic lung cancer, nicotine dependence, COPD, dyslipidemia presenting with shortness of breath. Her symptoms started about 4 days ago. She has been having worsening cough, with some shortness of breath. She also has sore throat, and chest pain with cough. She denies fevers or chills. She denies any palpitations, lightheadedness, abdominal pain, bowel and urinary complaints. Patient had radiation in the past, sees ramon gallardo for cancer treatment. Currently not on any therapy. Continues to smoke 3 cigs a day, drinks 2-3 drinks per day, no illicit drug use. Ambulatory at baseline. Lives alone. In the ED, temperature was 98.7, pulse 111, respiratory rate 18, blood pressure 151/79, saturating at 90% on room air. Chest x-ray independently interpreted, shows right basilar opacity. EKG independently interpreted, shows sinus tachycardia. WBC 11.3, lactate 2.1, creatinine 0.66, bicarb 20, calcium 10.5, troponin negative, proBNP 579, respiratory viral panel negative. Patient admitted for COPD exacerbation. Pertinent positives and negatives as discussed in HPI, a complete review of systems was performed and all other systems are negative. Patient seen and examined at bedside. Vital signs reviewed General: nontoxic, no distress, appears at stated age Derm: warm, dry Head: atraumatic, normocephalic, symmetric Eyes: EOMI, no lid lag, anicteric sclera, pupils equal round reactive to light ENT: Nose and ears atraumatic Neck: No thyromegaly, supple Mouth: no lip lesion, mucus membranes moist Cardiovascular: S1S2 reg, no murmur, no edema Lungs: clear to auscultation bilateral, no rhonchi, no rales, no wheeze, no accessory muscle use, supplemental O2 Abdominal: soft, nontender to palpation, no guarding, no appreciable organomegaly Ext: no gross muscle atrophy, muscle strength muscle strength 5 out of 5 in all 4 extremities, no contractures Neuro: CN II-XII grossly intact Psych: Alert, oriented, appropriate affect Assessment/Plan: Active: Acute COPD exacerbation Community-acquired pneumonia Acute hypoxic respiratory failure Nicotine dependence Metastatic lung cancer status post radiation Leukocytosis -DuoNeb's 4 times a day, and every 2 hours as needed, IV Solu-Medrol 60 mg every 6 hours -Blood cultures, sputum cultures, Legionella pending -IV ceftriaxone 2 g every 24 hours, azithromycin IV 500 mg daily -wean O2 -Counseled regarding smoking cessation -Patient to follow up outpatient with oncology -Repeat CBC and BMP tomorrow Hypercalcemia High anion gap Metabolic acidosis Lactic acidosis -Normal saline at 1 30 mL an hour -Repeat BMP and lactate Chronic: HLD depression Resume home medications when confirmed by pharmacy The patient is admitted with an anticipated less than 2 midnight stay as obs status for evaluation of copd exacerbation. Surrogate decision-maker: daughter CODE STATUS:FC DVT prophylaxis: lovenox Anticipated discharge date: pending clinical course Anticipated discharge place: pending clinical course A total of 66 minutes was spent on the care of this complex patient more than 50% of the time was spent in counseling and care coordination. Past Medical History Past Medical History: COPD, Hyperlipidemia, Hypertension, Osteoarthritis (OA) Additional Past Medical History / Comment(s): lung bx and post collapsed lung,migraines in past, osteoporosis, sinus problems, benign colon polyps. lung cancer 2017 "occ my heart beats fast". States no radiation or chemo after her lung surgery. emphysema History of Any Multi-Drug Resistant Organisms: None Reported Past Surgical History: Back Surgery, Orthopedic Surgery, Tubal Ligation Additional Past Surgical History / Comment(s): lt shoulder-rotator cuff, lung bx and lower half of left lung removed d/t cancer,philip cataracts, philip bunionectomies and philip 2nd toes straightend, colonoscopy-benign polyps removed, Past Anesthesia/Blood Transfusion Reactions: No Reported Reaction Past Psychological History: No Psychological Hx Reported Smoking Status: Former smoker Past Alcohol Use History: Daily, Occasional Past Drug Use History: None Reported - Past Family History Mother Family Medical History: Congestive Heart Failure (CHF) Additional Family Medical History / Comment(s): Brain Aneurysm Father Family Medical History: Cancer Additional Family Medical History / Comment(s): Lymphoma-non hodgkins Medications and Allergies Home Medications Medication Instructions Recorded Confirmed Type DULoxetine HCL [Cymbalta] 90 mg PO DAILY 10/16/16 10/12/22 History Atorvastatin [Lipitor] 20 mg PO DAILY 12/12/17 10/12/22 History LORazepam [Ativan] 0.5 mg PO Q8H PRN 12/12/17 10/12/22 History Ibuprofen [Motrin] 400 mg PO Q6H PRN 01/14/22 10/12/22 History Albuterol Inhaler [Ventolin Hfa 1 - 2 puff INHALATION Q6H PRN #1 10/12/22 Rx Inhaler] each Fluticasone/Umeclidin/Vilanter 1 puff INHALATION RT-DAILY 10/12/22 10/12/22 History [Trelegy Ellipta 100-62.5-25] Metoprolol Succinate (ER) [Toprol 25 mg PO DAILY 10/12/22 10/12/22 History Xl] Ondansetron Odt [Zofran Odt] 4 mg PO Q8HR PRN #14 tab 10/12/22 Rx Psyllium Husk 100% [Metamucil 6 gm PO HS 10/12/22 10/12/22 History Packet] predniSONE 50 mg PO DAILY #5 tab 10/12/22 Rx Allergies Allergy/AdvReac Type Severity Reaction Status Date / Time Penicillins Allergy Rash/Hives Verified 06/28/23 17:57 sulfamethoxazole Allergy Rash/Hives/ Verified 06/28/23 17:57 [From Bactrim] Blisters trimethoprim [From Bactrim] Allergy Rash/Hives/ Verified 06/28/23 17:57 Blisters Physical Exam Vitals: Vital Signs Temp Pulse Resp BP Pulse Ox 06/28/23 17:53 108 H 20 139/76 92 L 06/28/23 16:20 113 H 20 135/74 94 L 06/28/23 14:56 103 H 06/28/23 14:37 102 H 06/28/23 14:10 105 H 22 141/73 97 06/28/23 13:41 98.7 F 111 H 18 151/79 90 L Intake and Output 06/28/23 06/28/23 06/28/23 06:59 14:59 22:59 Other: Weight 53.977 kg Results CBC & Chem 7: 06/28/23 14:14 06/28/23 14:14 Labs: Abnormal Lab Results - Last 24 Hours (Table) 06/28/23 06/28/23 06/28/23 Range/Units 14:14 14:14 14:14 WBC 11.3 H (3.8-10.6) k/uL MCV 105.4 H (80.0-100.0) fL Neutrophils # 9.7 H (1.3-7.7) k/uL Lymphocytes # 0.5 L (1.0-4.8) k/uL PT 9.4 L (10.0-12.5) sec Sodium 135 L (137-145) mmol/L Carbon Dioxide 20 L (22-30) mmol/L Plasma Lactic Acid Rashaun (0.7-2.0) mmol/L Calcium 10.5 H (8.4-10.2) mg/dL Alkaline Phosphatase 152 H (38-126) U/L Total Protein 8.6 H (6.3-8.2) g/dL 06/28/23 Range/Units 14:14 WBC (3.8-10.6) k/uL MCV (80.0-100.0) fL Neutrophils # (1.3-7.7) k/uL Lymphocytes # (1.0-4.8) k/uL PT (10.0-12.5) sec Sodium (137-145) mmol/L Carbon Dioxide (22-30) mmol/L Plasma Lactic Acid Rashaun 2.1 H* (0.7-2.0) mmol/L Calcium (8.4-10.2) mg/dL Alkaline Phosphatase (38-126) U/L Total Protein (6.3-8.2) g/dL
[2023-06-28] MEDS: SODIUM CHLORIDE 0.9% 1,000 ML IV SCH (19:01)
[2023-06-28] MEDS: AZITHROMYCIN 500 MG in SODIUM CHLORIDE 0.9% 250 ML IVPB SCH (19:03)
[2023-06-28] MEDS: IPRATROPIUM-ALBUTEROL 3 ML NEB INHALATION SCH (20:03)
[2023-06-28] MEDS: DULoxetine HCL 60 MG CAPSULE.DR PO SCH (20:28)
[2023-06-28 21:47] LABS: ABG Base Excess -5.5 mmol/L; ABG HCO3 20 mmol/L (21-25); ABG Oxygen Saturation 92.4 % (94-97); ABG PCO2 35 mmHg (35-45); ABG PH 7.37 (7.35-7.45); ABG PO2 66 mmHg (83-108); ABG TCO2 21 mmol/L (19-24); Allen Test Performed? Yes
[2023-06-29] MEDS: methylPREDNISolone SOD SUCCI 125 MG/2 ML VIAL IV SCH ×5 (00:22→20:53)
[2023-06-29] MEDS: SODIUM CHLORIDE 0.9% 1,000 ML IV SCH ×2 (00:52→09:52)
[2023-06-29] MEDS: IPRATROPIUM-ALBUTEROL 3 ML NEB INHALATION SCH ×4 (08:10→19:21)
[2023-06-29] MEDS: METOPROLOL SUCCINATE (ER) 25 MG TAB.ER.24H PO SCH (09:02)
[2023-06-29] MEDS: amLODIPine 10 MG TAB PO SCH (09:02)
[2023-06-29] MEDS: ENOXAPARIN 40 MG/0.4 ML SYRINGE SQ SCH (09:03)
[2023-06-29 11:14] LABS: Basophils # (A) 0.02 X 10*3/uL (0.00-0.10); Basophils % (A) 0.1 %; Eosinophils # (A) 0.06 X 10*3/uL (0.04-0.35); Eosinophils % (A) 0.4 %; HCT 36.2 % (37.2-46.3); HGB 12.2 g/dL (12.0-15.0); Lymphocytes # (A) 0.31 X 10*3/uL (0.90-5.00); Lymphocytes % (A) 2.2 %; MCH 34.4 pg (27.0-32.0); MCHC 33.7 g/dL (32.0-37.0); Mean Platelet Volume 10.2 FL (9.5-12.2); Monocytes # (A) 0.24 X 10*3/uL (0.20-1.00); Monocytes % (A) 1.7 %; NRBC Per 100 WBC 0 X 10*3/uL (0.00-0.01); Neutrophils # (A) 13.55 X 10*3/uL (1.80-7.70); Neutrophils % (A) 95.2 %; Platelet Count 240 X 10*3/uL (140-440); RBC 3.55 X 10*6/uL (4.10-5.20); RDW 12.9 % (11.5-14.5); WBC 14.24 X 10*3/uL (4.50-10.00)
[2023-06-29 11:18] LABS: Blood Urea Nitrogen 15.6 mg/dL (9.0-27.0); Calcium 9.8 mg/dL (8.7-10.3); Chloride 101 mmol/L (96-109); Glucose 149 mg/dL (70-110); Potassium 4.9 mmol/L (3.5-5.5); Sodium 135 mmol/L (135-145)
--- NOTE | 2023-06-29 13:27 | P.PN ---
Subjective Progress Note Date: 06/29/23 Hospital Course: 83-year-old female with history of metastatic lung cancer, nicotine dependence, COPD, dyslipidemia presenting with shortness of breath. In the ED, temperature was 98.7, pulse 111, respiratory rate 18, blood pressure 151/79, saturating at 90% on room air. Chest x-ray independently interpreted, shows right basilar opacity. EKG independently interpreted, shows sinus tachycardia. WBC 11.3, lactate 2.1, creatinine 0.66, bicarb 20, calcium 10.5, troponin negative, proBNP 579, respiratory viral panel negative. Patient admitted for COPD exacerbation. Subjective: Patient seen and examined at bedside. Continues to have significant cough. No acute events. Pertinent positives and negatives as discussed above, a complete review of systems was performed and all other systems are negative. Vitals Signs Reviewed. General: nontoxic, no distress, appears at stated age Derm: warm, dry Head: atraumatic, normocephalic, symmetric Eyes: EOMI, no lid lag, anicteric sclera Mouth: no lip lesion, mucus membranes moist Cardiovascular: S1S2 tachycardic, no murmur Lungs: CTA bilateral, no rhonchi, no rales , no accessory muscle use, supplemental oxygen Abdominal: soft, nontender to palpation, no guarding, no appreciable organomegaly Ext: no gross muscle atrophy, no edema, no contractures Neuro: CN II-XI grossly intact, no focal neuro deficits Psych: Alert, oriented, appropriate affect Data Reviewed Today: Pertinent Labs: WBC 14.24, d-dimer 0.89, creatinine 0.8 Imaging: CT chest pending Assessment and Plan: Acute COPD exacerbation Sepsis secondary to Community-acquired pneumonia Acute hypoxic respiratory failure Sinus Tachycardia Nicotine dependence Metastatic lung cancer status post radiation Leukocytosis, -DuoNeb's 4 times a day, and every 2 hours as needed, IV Solu-Medrol 60 mg every 6 hours -Blood cultures, sputum cultures, Legionella pending -IV ceftriaxone 2 g every 24 hours, azithromycin IV 500 mg daily -wean O2 -Patient had a higher risk for pulmonary embolism -D-dimer mildly elevated -CTA chest pending -Counseled regarding smoking cessation -Patient to follow up outpatient with oncology -Repeat CBC and BMP tomorrow Hypercalcemia, resolved High anion gap Metabolic acidosis, resolving Lactic acidosis, resolved -Normal saline at 1 30 mL an hour Chronic: HLD depression DVT ppx: Lovenox Code status: FC Anticipated discharge place: pending clinical course Anticipated discharge time: pending clinical course Objective - Vital Signs Vital signs: Vital Signs Temp 97.2 F L 06/29/23 08:58 Pulse 104 H 06/29/23 11:38 Resp 21 06/29/23 08:59 BP 144/77 06/29/23 08:58 Pulse Ox 93 L 06/29/23 08:58 FiO2 Intake & Output 06/28/23 06/29/23 06/29/23 18:59 06:59 18:59 Intake Total 200 Balance 200 Weight 53.977 kg Intake: Oral 200 Other: Voiding Method Toilet - Labs CBC & Chem 7: 06/29/23 07:46 06/29/23 07:46 Labs: Abnormal Lab Results - Last 24 Hours (Table) 06/28/23 06/28/23 06/28/23 Range/Units 14:14 14:14 14:14 WBC 11.3 H (3.8-10.6) k/uL RBC (4.10-5.20) X 10*6/uL Hct (37.2-46.3) % MCV 105.4 H (80.0-100.0) fL MCH (27.0-32.0) pg Immature Gran # (0.00-0.04) X 10*3/uL Neutrophils # 9.7 H (1.3-7.7) k/uL Lymphocytes # 0.5 L (1.0-4.8) k/uL PT 9.4 L (10.0-12.5) sec D-Dimer (<0.60) mg/L FEU ABG pO2 (83-108) mmHg ABG HCO3 (21-25) mmol/L ABG O2 Saturation (94-97) % Sodium 135 L (137-145) mmol/L Carbon Dioxide 20 L (22-30) mmol/L Anion Gap (4.00-12.00) mmol/L Glucose (70-110) mg/dL Plasma Lactic Acid Rashaun (0.7-2.0) mmol/L Calcium 10.5 H (8.4-10.2) mg/dL Alkaline Phosphatase 152 H (38-126) U/L Total Protein 8.6 H (6.3-8.2) g/dL 06/28/23 06/28/23 06/29/23 Range/Units 14:14 21:44 00:24 WBC (3.8-10.6) k/uL RBC (4.10-5.20) X 10*6/uL Hct (37.2-46.3) % MCV (80.0-100.0) fL MCH (27.0-32.0) pg Immature Gran # (0.00-0.04) X 10*3/uL Neutrophils # (1.3-7.7) k/uL Lymphocytes # (1.0-4.8) k/uL PT (10.0-12.5) sec D-Dimer 0.89 H (<0.60) mg/L FEU ABG pO2 66 L (83-108) mmHg ABG HCO3 20 L (21-25) mmol/L ABG O2 Saturation 92.4 L (94-97) % Sodium (137-145) mmol/L Carbon Dioxide (22-30) mmol/L Anion Gap (4.00-12.00) mmol/L Glucose (70-110) mg/dL Plasma Lactic Acid Rashaun 2.1 H* (0.7-2.0) mmol/L Calcium (8.4-10.2) mg/dL Alkaline Phosphatase (38-126) U/L Total Protein (6.3-8.2) g/dL 06/29/23 06/29/23 Range/Units 07:46 07:46 WBC 14.24 H (3.8-10.6) k/uL RBC 3.55 L (4.10-5.20) X 10*6/uL Hct 36.2 L (37.2-46.3) % MCV 102.0 H (80.0-100.0) fL MCH 34.4 H (27.0-32.0) pg Immature Gran # 0.06 H (0.00-0.04) X 10*3/uL Neutrophils # 13.55 H (1.3-7.7) k/uL Lymphocytes # 0.31 L (1.0-4.8) k/uL PT (10.0-12.5) sec D-Dimer (<0.60) mg/L FEU ABG pO2 (83-108) mmHg ABG HCO3 (21-25) mmol/L ABG O2 Saturation (94-97) % Sodium (137-145) mmol/L Carbon Dioxide 21.0 L (22-30) mmol/L Anion Gap 13.00 H (4.00-12.00) mmol/L Glucose 149 H (70-110) mg/dL Plasma Lactic Acid Rashaun (0.7-2.0) mmol/L Calcium (8.4-10.2) mg/dL Alkaline Phosphatase (38-126) U/L Total Protein (6.3-8.2) g/dL
[2023-06-29] MEDS: AZITHROMYCIN 500 MG in SODIUM CHLORIDE 0.9% 250 ML IVPB SCH (16:23)
--- NOTE | 2023-06-29 17:58 | CT ---
EXAMINATION TYPE: CT chest angio for PE CT DLP: 221.6 mGycm, Automated exposure control for dose reduction was used. DATE OF EXAM: 06/29/2023 4:38 PM COMPARISON: 10/12/2022. CLINICAL INDICATION:Female, 83 years old with history of hypoxia; SOB, cough TECHNIQUE/CONTRAST: CTA scan of the thorax is performed with IV Contrast, patient injected with 100 mL of Isovue 300, MIP images are created and reviewed these are created on a separate workstation.. FINDINGS: Pulmonary Artery: There is no evidence for a filling defect within the pulmonary vasculature to sugge st acute pulmonary embolism. The pulmonary artery is of normal size. Lungs/Pleura: Moderate to severe emphysema changes streaky atelectasis/scarring in the right middle l obe. Right middle lobe pulmonary nodule measuring 6 mm, series 411 image 93. Right lower lobe pulmona ry nodule measuring 6 mm series 411 image 110. Left lower lobe superior segment pulmonary nodule carol uring 7 mm series 401 image 62. No evidence of focal consolidation, pleural effusion or pneumothorax. Airway: Large airways are patent. Heart: Heart is within normal limits for size. Vasculature: Moderate atherosclerotic calcifications are present throughout the aorta and its branche s. Mediastinum: No gross evidence of adenopathy. Small hiatal hernia. Musculoskeletal: Mild degenerative disc disease changes are present throughout the thoracolumbar spin e. Soft Tissues: Unremarkable. Lower neck: No significant findings. Upper Abdomen: No significant findings. IMPRESSION: 1. No evidence of pulmonary embolism. 2. Moderate to severe emphysema changes. 3. Scattered pulmonary nodules which are new from prior correlate for history of malignancy. If no hi story of malignancy short-term follow-up in 3-6 months recommended. Follow up recommendations for incidental pulmonary nodules, if there are any, are per [employer] or [employer].
[2023-06-29] MEDS: DULoxetine HCL 60 MG CAPSULE.DR PO SCH (20:52)
[2023-06-29] MEDS: guaiFENesin-DM 600/30MG 1 EACH TAB.ER.12H PO PRN (21:20)
[2023-06-30] MEDS: methylPREDNISolone SOD SUCCI 125 MG/2 ML VIAL IV SCH ×2 (06:22→12:00)
[2023-06-30] MEDS: amLODIPine 10 MG TAB PO SCH (08:42)
[2023-06-30] MEDS: METOPROLOL SUCCINATE (ER) 25 MG TAB.ER.24H PO SCH (08:42)
[2023-06-30] MEDS: ENOXAPARIN 40 MG/0.4 ML SYRINGE SQ SCH (08:42)
[2023-06-30 09:02] LABS: BUN/Creat Ratio 20.29 Ratio (12.00-20.00); Blood Urea Nitrogen 14.2 mg/dL (9.0-27.0); Calcium 9.6 mg/dL (8.7-10.3); Chloride 103 mmol/L (96-109); Glucose 145 mg/dL (70-110); Potassium 4.9 mmol/L (3.5-5.5); Sodium 136 mmol/L (135-145)
[2023-06-30] MEDS: IPRATROPIUM-ALBUTEROL 3 ML NEB INHALATION SCH ×3 (09:10→15:52)
[2023-06-30] MEDS: guaiFENesin-DM 600/30MG 1 EACH TAB.ER.12H PO PRN (09:20)
[2023-06-30 09:41] LABS: HCT 35.8 % (37.2-46.3); HGB 11.8 g/dL (12.0-15.0); MCH 34.7 pg (27.0-32.0); MCV 105.3 FL (80.0-97.0); Mean Platelet Volume 10.5 FL (9.5-12.2); NRBC Per 100 WBC 0 X 10*3/uL (0.00-0.01); Platelet Count 241 X 10*3/uL (140-440); WBC 13.52 X 10*3/uL (4.50-10.00)
[2023-06-30 10:58] LABS: Basophils # (A) 0.02 X 10*3/uL (0.00-0.10); Basophils % (A) 0.1 %; Eosinophils # (A) 0.01 X 10*3/uL (0.04-0.35); Eosinophils % (A) 0.1 %; Lymphocytes % (A) 2.2 %; Monocytes # (A) 0.41 X 10*3/uL (0.20-1.00); RBC Morphology Normal (Normal)
--- NOTE | 2023-06-30 11:08 | P.DS ---
Providers Date of admission: 06/28/23 17:18 Expected date of discharge: 06/30/23 Attending physician: Miriam Cristina DO Primary care physician: Guicho Sands Hospital Course: Discharge Diagnosis: Acute COPD exacerbation Sepsis secondary to Community-acquired pneumonia Acute hypoxic respiratory failure Sinus Tachycardia Nicotine dependence Metastatic lung cancer status post radiation Leukocytosis Alcohol dependence Hospital Course: 83-year-old female with history of metastatic lung cancer, nicotine dependence, COPD, dyslipidemia presenting with shortness of breath. In the ED, temperature was 98.7, pulse 111, respiratory rate 18, blood pressure 151/79, saturating at 90% on room air. Chest x-ray independently interpreted, shows right basilar opacity. EKG independently interpreted, shows sinus tachycardia. WBC 11.3, lactate 2.1, creatinine 0.66, bicarb 20, calcium 10.5, troponin negative, proBNP 579, respiratory viral panel negative. Patient admitted for COPD exacerbation. CTA chest was completed, did not show any evidence of pulmonary embolism, moderate to severe emphysema, scattered pulmonary nodules, concerning for malignancy. Patient started on LAMA. She will follow-up with pulmonology and her oncologist. She will also see her PCP. Being discharged on short course of oral antibiotics and steroids. Patient seen and examined at bedside. Vital signs reviewed and stable. General: nontoxic, no distress, appears at stated age Derm: warm, dry Head: atraumatic, normocephalic, symmetric Eyes: EOMI, no lid lag, anicteric sclera Mouth: no lip lesion, mucus membranes moist Cardiovascular: S1S2 reg, no murmur Lungs: CTA bilateral, no rhonchi, no rales , no accessory muscle use Abdominal: soft, nontender to palpation, no guarding, no appreciable organomegaly Ext: no gross muscle atrophy, no edema, no contractures Neuro: CN II-XI grossly intact, no focal neuro deficits Psych: Alert, oriented, appropriate affect A total of 33 minutes of time were spent preparing this complex discharge s candiwendy. Patient was discharged on 06/30/23 at 1102. Patient Condition at Discharge: Stable Plan - Discharge Summary Discharge Rx Participant: No New Discharge Prescriptions: New Cefdinir 300 mg PO Q12HR #8 cap guaiFENesin-DM 600/30MG [Mucinex Dm] 1 each PO Q12HR PRN #20 tab PRN Reason: Cough Tiotropium 18 Mcg/Puff [Spiriva] 1 puff INHALATION DAILY #30 each predniSONE [Deltasone] 40 mg PO DAILY #8 tab Azithromycin [Zithromax Tri-Xander (3 tabs)] 500 mg PO DAILY #1 tab Continue LORazepam [Ativan] 0.5 mg PO Q8H PRN PRN Reason: Anxiety Psyllium Husk 100% [Metamucil Packet] 6 gm PO HS Ibuprofen [Motrin Ib] 400 mg PO Q8H PRN PRN Reason: Pain Or Fever > 100.5 Folic Acid 1 mg PO DAILY Metoprolol Succinate (ER) [Toprol XL] 25 mg PO DAILY amLODIPine [Norvasc] 10 mg PO DAILY DULoxetine HCL [Cymbalta] 120 mg PO HS Albuterol Inhaler [Ventolin Hfa Inhaler] 1 - 2 puff INHALATION RT-Q6H PRN PRN Reason: Shortness Of Breath Discharge Medication List LORazepam [Ativan] 0.5 mg PO Q8H PRN 12/12/17 [History] Metoprolol Succinate (ER) [Toprol XL] 25 mg PO DAILY 10/12/22 [History] Psyllium Husk 100% [Metamucil Packet] 6 gm PO HS 10/12/22 [History] Albuterol Inhaler [Ventolin Hfa Inhaler] 1 - 2 puff INHALATION RT-Q6H PRN 06/28/23 [History] DULoxetine HCL [Cymbalta] 120 mg PO HS 06/28/23 [History] Folic Acid 1 mg PO DAILY 06/28/23 [History] Ibuprofen [Motrin Ib] 400 mg PO Q8H PRN 06/28/23 [History] amLODIPine [Norvasc] 10 mg PO DAILY 06/28/23 [History] Azithromycin [Zithromax Tri-Xander (3 tabs)] 500 mg PO DAILY #1 tab 06/30/23 [Rx] Cefdinir 300 mg PO Q12HR #8 cap 06/30/23 [Rx] Tiotropium 18 Mcg/Puff [Spiriva] 1 puff INHALATION DAILY #30 each 06/30/23 [Rx] guaiFENesin-DM 600/30MG [Mucinex Dm] 1 each PO Q12HR PRN #20 tab 06/30/23 [Rx] predniSONE [Deltasone] 40 mg PO DAILY #8 tab 06/30/23 [Rx] Follow up Appointment(s)/Referral(s): Guicho Sands MD [Primary Care Provider] - 1-2 days Luis Elmore MD [STAFF PHYSICIAN] - 1 Week Patient Instructions/Handouts: How to Stop Smoking (DC), COPD (Chronic Obstructive Pulmonary Disease) (DC) Activity/Diet/Wound Care/Special Instructions: Follow up with your oncologist and a excelsior picker. Discharge Disposition: HOME SELF-CARE
[2023-06-30 15:23] VITALS: BP 147/72; PULSE 76; RESP 22; TEMP 98.1
== END 2023-06-30 16:15 | disposition home or self-care (01) ==
LOC: EC 13:35 → 6NMEDSUR 17:18
PROVIDERS: ADMIT Internal Medicine; ATTEND Internal Medicine
DX: A41.9 Sepsis, unspecified organism (principal); J96.01 Acute respiratory failure with hypoxia; J44.1 Chronic obstructive pulmonary disease with (acute) exacerbation; J44.0 Chronic obstructive pulmonary disease with (acute) lower respiratory infection; J18.9 Pneumonia, unspecified organism; J43.9 Emphysema, unspecified; E83.52 Hypercalcemia; E87.20 Acidosis, unspecified; R91.8 Other nonspecific abnormal finding of lung field; F17.210 Nicotine dependence, cigarettes, uncomplicated; I10 Essential (primary) hypertension; E78.5 Hyperlipidemia, unspecified; M19.90 Unspecified osteoarthritis, unspecified site; M81.0 Age-related osteoporosis without current pathological fracture; G43.909 Migraine, unspecified, not intractable, without status migrainosus; F32.A Depression, unspecified; F10.20 Alcohol dependence, uncomplicated; Z79.51 Long term (current) use of inhaled steroids; Z79.899 Other long term (current) drug therapy; Z88.0 Allergy status to penicillin; Z88.1 Allergy status to other antibiotic agents; Z88.2 Allergy status to sulfonamides; Z11.52 Encounter for screening for COVID-19; Z11.59 Encounter for screening for other viral diseases; Z71.6 Tobacco abuse counseling; Z85.118 Personal history of other malignant neoplasm of bronchus and lung; Z86.010 Personal history of colon polyps; Z92.3 Personal history of irradiation; Z98.51 Tubal ligation status; Z79.02 Long term (current) use of antithrombotics/antiplatelets; Z98.42 Cataract extraction status, left eye; Z98.41 Cataract extraction status, right eye; Z98.890 Other specified postprocedural states; Z82.49 Family history of ischemic heart disease and other diseases of the circulatory system; Z80.7 Family history of other malignant neoplasms of lymphoid, hematopoietic and related tissues
CPT/HCPCS: 96376 ×4; 96366 ×2; 96367; 96372 ×2; 96365; 96375; 99285; 36415; 94640 ×5; 36600; 94760; 93005; 85379; 83880; 80053; 80048 ×2; 87449; 82805; 83605; 84484; 85025 ×3; 85610; 85730; 87040; 87070; 87205; 87636; 71046; 71275; G0378 ×3; J2930 ×3; J0456 ×2; J0696 ×2; J1650 ×2; Q9967